=== PATIENT | female | born 1995 | race Caucasian/White ===

== ENCOUNTER 2018-06-26 13:31 | Outpatient (REF) | payer MEDICAID, SELFPAY ==
[2018-06-26 15:34] LABS: Tricyclic Antidepressants Negative (Negative)
[2018-06-26 15:36] LABS: *AMPHETAMINES SCREEN URINE Negative (Negative); *BARBITURATES SCREEN URINE Negative (Negative); *BENZODIAZEPINES SCREEN URINE Negative (Negative); Cannabinoids THC Negative (Negative); Cocaine Screen,Urine Negative (Negative); METHADONE URINE SCREEN Negative (Negative); OPIATES URINE SCREEN Negative (Negative)
[2018-06-28 13:47] LABS: Chlamydia Result Negative; GC Result Negative
[2018-07-01 19:06] LABS: Buprenorphine Negative; Norbuprenorphine Negative
== END 2018-06-26 13:51 ==
LOC: LBN 13:31
PROVIDERS: PCP Family Medicine; Visit Provider Advanced Practice Midwife
DX: Z34.91 Encounter for supervision of normal pregnancy, unspecified, first trimester (principal); N76.0 Acute vaginitis; Z11.3 Encounter for screening for infections with a predominantly sexual mode of transmission
CPT/HCPCS: 80307; 87077; 87491; 87591; 87086; 87186; 87480; 87510; 87660

== ENCOUNTER 2018-07-03 08:04 | Outpatient (CLI) | payer MEDICAID, SELFPAY ==
[2018-07-03 08:40] LABS: Abs Immature Grans 0.06 k/cumm (0.0-0.09); Absolute Basophil Count 0.02 k/cumm (0.0-0.2); Absolute Eosinophil Count 0.07 k/cumm (0.0-0.7); Absolute Lymphocyte Count 2.03 k/cumm (1.2-3.4); Absolute Monocyte Count 0.63 k/cumm (0.11-0.7); Absolute Neutrophil Count 7.02 k/cumm (1.2-6.7); Basophils % 0.2; Eosinophils % 0.7; HCT 34.1 % (36.0-46.0); HGB 12.3 g/dL (12.0-15.5); Immature Grans % 0.6; Lymphocytes % 20.7; Mean Corp. HGB Concentration 36.1 g/dL (32.0-36.0); Mean Corpuscular Hemoglobin 32.8 pg (27.0-33.0); Mean Corpuscular Volume 90.9 fL (80-95); Mean Platelet Volume 9.8 fL (8.0-11.0); Monocytes % 6.4; Neutrophils % 71.4; Platelet Count 219 x1000/uL (130-400); RBC 3.75 m/cumm (4.00-5.20); RBC Distribution Width 16.1 % (11.7-14.6); White Blood Cell Count 9.83 k/cumm (4.4-10.8)
[2018-07-03 09:25] LABS: Anion Gap 12.6 mmol/L (3-11); BUN 8 mg/dL (7-18); CO2 22.4 mmol/L (21.0-32.0); CREATININE 0.49 mg/dL (0.55-1.02); Chloride 104 mmol/L (98-107); Glucose 85 mg/dL (70-100); Potassium 3.7 mmol/L (3.5-5.1); Sodium 139 mmol/L (136-145); TSH (W/Ref FT4) 2.89 uIU/mL (0.358-3.74)
[2018-07-04 09:26] LABS: Hepatitis B Surface Ag Negative (NEGAT)
[2018-07-04 10:08] LABS: HIV-1/2 Ag & Ab Screen Negative (NEGAT)
[2018-07-04 10:13] LABS: Hepatitis C Ab w Rflx HCV PCR Negative (NEGAT)
[2018-07-04 12:19] LABS: Rubella IgG Ab (UVM) Positive; Varicella IgG Antibody Positive
[2018-07-04 12:36] LABS: Syphilis Serology (RPR) Negative (Negative)
[2018-07-08 15:01] LABS: AFP 20.2 ng/mL; Cigarette smoking status non-smoker; GA used in risk estimate Scan estimate; INHIBIN 119 pg/mL; IVF Pregnancy No; Initial or repeat testing Initial testing; Insulin dependent diabetes No; Maternal Weight 230 lbs; Number of Fetuses 1; Physician Phone Number 802-748-7300; Prev Down(T21)/Trisomy Pregnan No; Prev Pregnancy w/NTD No; RECOMMENDED FOLLOW UP None.; Results Summary Normal risk; hCG, TOTAL 18.5 IU/mL; hCG, TOTAL MoM 0.62 MoM; uE3 0.41 ng/mL; uE3 MoM 0.72 MoM
== END 2018-07-03 08:24 ==
PROVIDERS: Advanced Practice Midwife; PCP Family Medicine; Visit Provider Advanced Practice Midwife
DX: Z34.92 Encounter for supervision of normal pregnancy, unspecified, second trimester (principal); Z87.59 Personal history of other complications of pregnancy, childbirth and the puerperium; Z01.84 Encounter for antibody response examination; Z11.59 Encounter for screening for other viral diseases; Z11.4 Encounter for screening for human immunodeficiency virus [HIV]; Z36.89 Encounter for other specified antenatal screening
CPT/HCPCS: 36415; 80048; 80055; 81511; 86787; 86803; 86850; 86900; 86901; 87340; 87389; 84443; 86592; 86762

== ENCOUNTER 2018-07-26 00:19 | Outpatient (CLI) | payer MEDICAID, SELFPAY ==
--- NOTE | 2018-07-26 14:18 | DI.US_ITS ---
SYMPTOMS/DIAGNOSIS: SUPERVISION NORMAL , Z34.90 OB ULTRASOUND: Many abnormalities cannot be diagnosed. A normal exam does not exclude a congenital anomaly. Radiology No. [id number] LMP: Exam Date: 07/26/18 [facility] wks days on EDC ([facility]) 12/22/18 Confirmed: HISTORY: PREDICTED GESTATIONAL AGE NUMBER 18+5 weeks with a range of 17+5 weeks to 19+5 weeks. 1 Determined by___1STUS___LMP_X__HISTORY PLACENTA PRESENTATION Grade I Cephalic___ Anterior___Posterior_X__ Breech____ Right Left Transverse(head right___ Fundal___Low-lying___Previa___ Transverse(head left___ Varying__X____ BIOMETRY AMNIOTIC FLUID BPD: 44 mm 19+3 weeks Normal HC: 169 mm 19+4 weeks AC: 144 mm 19+5 weeks FL: 29 mm 19+0 weeks AMNIOTIC FLUID INDEX >26 WK CRL: mm weeks Cisterna Magna: 4 mm CI: 81 RUQ: LUQ Cerebellum: 2.0 cm EFW: 290 grams Percentile: 84th RLQ: LLQ Total: cms Composite AGE= 19+3 wks EDC by US: 12/17/18 BIOPHYSICAL PROFILE ANATOMY IDENTIFIED SCORE 0/2 Heart: 4-Chamber_X__Rate:BPM 152 LVOT:____X RVOT:__X Amniotic Fluid(>2cms)____ Stomach:___X____ Kidneys:__X Respirations (>30 secs) Bladder:____X____ Post. Fossa:__X Body Flex/Extension 3-vessel cord:__X Ventricles:___X Cord insertion:_X____ Lips:_X___ Extremity Flex/Extension Spinal morphology:___X Nose:__X__ Total Score= Palate:__X NS=not seen COMMENTS: OB ultrasound was performed utilizing second trimester protocol. biometry is consistent with gestational age of 19 weeks 3 days and EDC of 12/17/2018. The placenta is posterior with no evidence of placenta previa. There is a normal quantity of amniotic fluid. anomaly screen is within normal limits as per the attached checklist.
== END 2018-07-26 00:39 ==
PROVIDERS: PCP Family Medicine; Visit Provider Advanced Practice Midwife
DX: Z34.92 Encounter for supervision of normal pregnancy, unspecified, second trimester (principal)
CPT/HCPCS: 76805

== ENCOUNTER 2018-08-23 16:04 | Outpatient (REF) | payer MEDICAID, SELFPAY | END 2018-08-23 16:24 | LOC: LBN 16:04 | PROVIDERS: PCP Family Medicine; Visit Provider Advanced Practice Midwife | DX: Z34.92 Encounter for supervision of normal pregnancy, unspecified, second trimester (principal) | CPT/HCPCS: 87077; 87086; 87186 ==

== ENCOUNTER 2018-09-20 10:13 | Outpatient (REF) | payer MEDICAID, SELFPAY | END 2018-09-20 10:33 | LOC: LBN 10:13 | PROVIDERS: PCP Family Medicine; Visit Provider Advanced Practice Midwife | DX: N39.0 Urinary tract infection, site not specified (principal); B96.20 Unspecified Escherichia coli [E. coli] as the cause of diseases classified elsewhere | CPT/HCPCS: 87086 ==

== ENCOUNTER 2018-10-04 07:53 | Outpatient (CLI) | payer MEDICAID, SELFPAY ==
[2018-10-04 08:42] LABS: HCT 32.1 % (36.0-46.0); Mean Corp. HGB Concentration 34.3 g/dL (32.0-36.0); Mean Corpuscular Hemoglobin 32.1 pg (27.0-33.0); Mean Corpuscular Volume 93.6 fL (80-95); Mean Platelet Volume 10.1 fL (8.0-11.0); Platelet Count 253 x1000/uL (130-400); RBC 3.43 m/cumm (4.00-5.20); RBC Distribution Width 17.7 % (11.7-14.6); White Blood Cell Count 11.93 k/cumm (4.4-10.8)
[2018-10-04 08:43] LABS: Glucose,1 Hr (Glucola) 167 mg/dL (80-140)
== END 2018-10-04 08:13 ==
PROVIDERS: PCP Family Medicine; Visit Provider Advanced Practice Midwife
DX: Z34.93 Encounter for supervision of normal pregnancy, unspecified, third trimester (principal); Z01.84 Encounter for antibody response examination
CPT/HCPCS: 36415; 82950; 85027; 86850; 90384

== ENCOUNTER 2018-10-11 03:40 | Outpatient (CLI) | payer MEDICAID, SELFPAY | END 2018-10-11 04:00 | PROVIDERS: PCP Family Medicine; Visit Provider Advanced Practice Midwife | DX: R69 Illness, unspecified (principal) | CPT/HCPCS: 36415; 82951 ==

== ENCOUNTER 2018-10-17 02:03 | Outpatient (CLI) | payer MEDICAID, SELFPAY ==
[2018-10-17 09:27] LABS: Glucose 1 Hour 186 mg/dL
[2018-10-17 11:54] LABS: Glucose 3 Hour 84 mg/dL
== END 2018-10-17 02:23 ==
PROVIDERS: PCP Family Medicine; Visit Provider Advanced Practice Midwife
DX: R73.09 Other abnormal glucose (principal); Z34.93 Encounter for supervision of normal pregnancy, unspecified, third trimester
CPT/HCPCS: 36410; 82951

== ENCOUNTER 2018-11-28 10:03 | Outpatient (REF) | payer MEDICAID, SELFPAY ==
[2018-11-28 11:21] LABS: *AMPHETAMINES SCREEN URINE Negative (Negative); *BARBITURATES SCREEN URINE Negative (Negative); *BENZODIAZEPINES SCREEN URINE Negative (Negative); Cannabinoids THC Negative (Negative); Cocaine Screen,Urine Negative (Negative); METHADONE URINE SCREEN Negative (Negative); OPIATES URINE SCREEN Negative (Negative)
[2018-11-28 11:22] LABS: Tricyclic Antidepressants Negative (Negative)
[2018-12-02 02:19] LABS: Buprenorphine Negative; Norbuprenorphine Negative
== END 2018-11-28 10:23 ==
LOC: LBN 10:03
PROVIDERS: PCP Family Medicine; Visit Provider Advanced Practice Midwife
DX: Z34.93 Encounter for supervision of normal pregnancy, unspecified, third trimester (principal)
CPT/HCPCS: 80307; 87081

== ENCOUNTER 2018-12-29 01:21 | Inpatient (IN) | payer MEDICAID, SELFPAY ==
[2018-12-29 03:49] LABS: HCT 33.5 % (36.0-46.0); HGB 11.2 g/dL (12.0-15.5); Mean Corp. HGB Concentration 33.4 g/dL (32.0-36.0); Mean Corpuscular Hemoglobin 29.6 pg (27.0-33.0); Mean Corpuscular Volume 88.4 fL (80-95); Mean Platelet Volume 10.7 fL (8.0-11.0); Platelet Count 249 x1000/uL (130-400); RBC 3.79 m/cumm (4.00-5.20); White Blood Cell Count 16.97 k/cumm (4.4-10.8)
[2018-12-29] MEDS: Normal Saline Flush 10 ML SYR IVP (14:00)
[2018-12-30 08:05] LABS: HCT 31.3 % (36.0-46.0); HGB 10.2 g/dL (12.0-15.5); Mean Corp. HGB Concentration 32.6 g/dL (32.0-36.0); Mean Corpuscular Hemoglobin 29.3 pg (27.0-33.0); Mean Corpuscular Volume 89.9 fL (80-95); Mean Platelet Volume 10.7 fL (8.0-11.0); Platelet Count 218 x1000/uL (130-400); RBC 3.48 m/cumm (4.00-5.20); RBC Distribution Width 18.6 % (11.7-14.6); White Blood Cell Count 16.65 k/cumm (4.4-10.8)
== END 2018-12-30 13:10 | disposition home or self-care (01) | DRG 807 ==
PROVIDERS: Admitting Provider Advanced Practice Midwife; PCP Family Medicine; Visit Provider Advanced Practice Midwife
DX: O48.0 Post-term pregnancy (principal); Z37.0 Single live birth; Z3A.41 41 weeks gestation of pregnancy; O69.3XX0 Labor and delivery complicated by short cord, not applicable or unspecified; Z79.82 Long term (current) use of aspirin; Z29.13 Encounter for prophylactic Rho(D) immune globulin; Z67.11 Type A blood, Rh negative
CPT/HCPCS: 36415; 85027; 85461; 86850; 86900; 86901; 90384; J2790; J3490

== ENCOUNTER 2019-02-12 15:03 | Outpatient (REF) | payer MEDICAID, SELFPAY ==
--- NOTE | 2019-02-12 12:05 | PAPFT_PTH ---
PATIENT: Tasha White LOC: N U#:[id number] AGE/SX: 23/F ROOM: RE02/12/[address]: Lovely Gonzalez RN : 1995 BED: DIS: 02/12/2019 SPEC #: [id number] RECD: 02/12/19 16:43 STATUS: DIANA REQ #: [id number] LUISA: 02/12/19 12:[address]: Lovely Gonzalez DEPT: [facility] Cytology RECD BY: Naz Casey ENTERED: 02/12/19 16:43 SP TYPE: PAPFT OTHR DR: Milly Marquez MD Tissues: 1 - CX/ENDOCX FOR PAP SMEARS Procedures: PAP THIN PREP/UVM Screening Comments: [id number]
== END 2019-02-12 15:23 ==
LOC: LBN 15:03
PROVIDERS: PCP Family Medicine; Visit Provider Advanced Practice Midwife
DX: Z12.4 Encounter for screening for malignant neoplasm of cervix (principal)
CPT/HCPCS: 88142

== ENCOUNTER 2020-03-09 17:32 | Outpatient (REF) | payer MEDICAID, SELFPAY | END 2020-03-09 17:52 | LOC: LBN 17:32 | PROVIDERS: PCP Family Medicine; Visit Provider Advanced Practice Midwife | DX: R30.0 Dysuria (principal) | CPT/HCPCS: 87077; 87086; 87186 ==

== ENCOUNTER 2021-02-01 11:43 | Outpatient (REF) | payer MEDICAID, SELFPAY ==
[2021-02-02 20:16] LABS: COVID-19 RT-PCR UVMMC Result Negative (Negative)
== END 2021-02-01 11:44 | disposition home or self-care (01) ==
LOC: LBN 11:43
PROVIDERS: Visit Provider Student in an Organized Health Care Education/Training Program
DX: Z20.822 Contact with and (suspected) exposure to COVID-19 (principal)
CPT/HCPCS: U0003

== ENCOUNTER 2021-03-02 10:14 | Outpatient (REF) | payer MEDICAID, SELFPAY ==
[2021-03-03 20:47] LABS: COVID-19 RT-PCR UVMMC Result Negative (Negative)
== END 2021-03-02 10:15 | disposition home or self-care (01) ==
LOC: LBN 10:14
PROVIDERS: Visit Provider Nurse Practitioner Family
DX: Z20.822 Contact with and (suspected) exposure to COVID-19 (principal)
CPT/HCPCS: U0003

== ENCOUNTER 2022-04-18 11:56 | Outpatient (REF) | payer MEDICAID, SELFPAY ==
--- NOTE | 2022-04-18 11:30 | PAPFT_PTH ---
PATIENT: Tasha White LOC: [facility] U#:[id number] AGE/SX: 26/F ROOM: RE04/18/[address]: Stefania Hopkins NP : 1995 BED: DIS: 04/18/2022 SPEC #: [id number] RECD: 04/18/22 13:08 STATUS: DIANA REQ #: [id number] LUISA: 04/18/22 11:[address]: Kellie MONDRAGON,Stefania DEPT: [facility] Cytology RECD BY: Naz Casey ENTERED: 04/18/22 13:08 SP TYPE: PAPFT OTHR DR: Hiral Lynn, DURAN Tissues: 1 - CX/ENDOCX FOR PAP SMEARS Procedures: PAP THIN PREP/UVM Screening HPV DNA PROBE Comments:
== END 2022-04-18 11:57 | disposition home or self-care (01) ==
LOC: LBN 11:56
PROVIDERS: PCP Nurse Practitioner Family; Visit Provider Nurse Practitioner Women's Health
DX: Z12.4 Encounter for screening for malignant neoplasm of cervix (principal); Z11.51 Encounter for screening for human papillomavirus (HPV)
CPT/HCPCS: 88142; 87624

== ENCOUNTER 2022-05-09 03:39 | Outpatient (CLI) | payer MEDICAID, SELFPAY ==
[2022-05-09 12:58] LABS: Hemoglobin A1C < 4.5 % (<5.7)
[2022-05-09 13:01] LABS: Anion Gap 11.3 mmol/L (3-11); BUN 13 mg/dL (7-18); CO2 24.7 mmol/L (21.0-32.0); CREATININE 0.8 mg/dL (0.55-1.02); Calcium 9.1 mg/dL (8.5-10.1); Calculated LDL 91 mg/dL (<100); Chloride 103 mmol/L (98-107); Cholesterol 161 mg/dL (<200); Estimated GFR 102.86 (mL/min/1.73m2); Glucose 87 mg/dL (74-106); HDL Cholesterol 56 mg/dL (40-60); Potassium 3.9 mmol/L (3.5-5.1); Sodium 139 mmol/L (136-145); TSH (W/Ref FT4) 2.53 uIU/mL (0.36-3.74); Triglyceride 72 mg/dL (<150)
== END 2022-05-09 03:40 | disposition home or self-care (01) ==
LOC: LOS 03:39
PROVIDERS: PCP Nurse Practitioner Family; Visit Provider Nurse Practitioner Family
DX: E66.01 Morbid (severe) obesity due to excess calories (principal); Z00.00 Encounter for general adult medical examination without abnormal findings; Z68.42 Body mass index [BMI] 45.0-49.9, adult
CPT/HCPCS: 36415; 80048; 80061; 83036; 84443

== ENCOUNTER 2023-04-24 16:49 | Outpatient (REF) | payer OTHER, MEDICAID, SELFPAY ==
[2023-04-24 17:50] LABS: *AMPHETAMINES SCREEN URINE Negative (Negative); *BARBITURATES SCREEN URINE Negative (Negative); *BENZODIAZEPINES SCREEN URINE Negative (Negative); Cannabinoids THC Negative (Negative); Cocaine Screen,Urine Negative (Negative); METHADONE URINE SCREEN Negative (Negative); OPIATES URINE SCREEN Negative (Negative)
[2023-04-24 17:51] LABS: Tricyclic Antidepressants Negative (Negative)
[2023-04-26 15:06] LABS: Chlamydia Result Negative (Negative); GC Result Negative (Negative)
[2023-05-01 08:20] LABS: Buprenorphine Negative ng/mL (Cutoff: 5.0); Norbuprenorphine Negative ng/mL (Cutoff: 2.5)
== END 2023-04-24 16:50 | disposition home or self-care (01) ==
LOC: LBN 16:49
PROVIDERS: PCP Nurse Practitioner Family; Visit Provider Advanced Practice Midwife
DX: Z34.91 Encounter for supervision of normal pregnancy, unspecified, first trimester
CPT/HCPCS: 80307; 80348; 87077; 87491; 87591; 87086; 87186

== ENCOUNTER 2023-05-10 06:16 | Emergency (ER) | payer OTHER, MEDICAID, SELFPAY ==
[2023-05-10 06:19] VITALS: BP 143/89; PULSE 114; RESP 24; TEMP 36.5; O2SAT 99
--- NOTE | 2023-05-10 06:55 | ED.GENADUL_ITS ---
Discharge Plan Disposition Patient Disposition: Home Discharge Details Clinical Impression: Hand laceration Primary Care Provider: Hiral Lynn ED Provider: Homar Hopkins Home Meds and New Rx's Prescriptions: No Action Classic 28 mg iron- 800 mcg tablet 1 tab PO DAILY Qty: 90 3RF Rx Instructions: may substitute aspirin 81 mg tablet,delayed release (DR/EC) 81 mg PO DAILY Qty: 60 5RF Rx Instructions: 1 tab daily alternating with two tabs every other day Discharge Instructions Instructions: Laceration (ED) Additional Instructions: You were seen in the emergency department after getting a cut on your right hand just below your thumb. We repaired this with 4 stitches after cleaning out the area. Get the stitches removed in 7 days if they do not fall out on their own. Return here for any redness or warmth to the area of the laceration repair. Return to the emergency department if you have any loss of function to your finger or hand. Otherwise follow-up with your primary care doctor. Referrals: Hiral Lynn NP [Primary Care Provider] - Return if symptoms worsen Medical Decision Making 27-year-old female presents with a laceration on the right hand. Simple laceration with no neurovascular or tendinous injury. Washed and irrigated at bedside. Repaired with 4 sutures. No complications. Up-to-date on tetanus. Will discharge with return precautions. Medical Records Medical records reviewed: Yes I reviewed the patient's medical records. HPI General Mode of arrival: ambulatory . Date/Time Provider Initiated Documentation: 05/10/23 06:29 . Limitations to Documentation: no limitations . Information obtained by: patient . HPI Narrative: 27-year-old female presents with a laceration to the right hand/thumb. Was washing decisions and did not notice piece of broken glass. Got a small 2 cm laceration to the right hand right at the base of the right thumb. Glass was clean. Had a tetanus shot within the last 5 years. Denies any other complaints. Related Data Home Medications Medication Instructions Recorded Confirmed vits no.126-ferrous fum 1 tab PO DAILY #90 tabs 03/06/23 05/10/23 28 mg iron-folic acid 800 mcg tablet (Classic ) aspirin 81 mg tablet,delayed 81 mg PO DAILY #60 tabs 04/24/23 05/10/23 release Previous Rx's Medication Instructions Recorded vits no.126-ferrous fum 1 tab PO DAILY #90 tabs 03/06/23 28 mg iron-folic acid 800 mcg tablet (Classic ) aspirin 81 mg tablet,delayed 81 mg PO DAILY #60 tabs 04/24/23 release Allergies Allergy/AdvReac Type Severity Reaction Status Date / Time No Known Allergies Allergy Verified 05/10/23 06:19 General Stated Complaint: Laceration XI: 4 Review of Systems Constitutional Constitutional: Denies chills, Denies fever(s) and Denies headache(s) Eyes Eyes: Denies change in vision ENT Ears, Nose, Mouth, and Throat: Denies headache(s) and Denies odynophagia Cardiovascular Cardiovascular: Denies chest pain and Denies dyspnea Respiratory Respiratory: Denies dyspnea Gastrointestinal Gastrointestinal: Denies abdominal pain, Denies diarrhea, Denies nausea, Denies odynophagia and Denies vomiting Genitourinary Genitourinary: Denies dysuria Musculoskeletal Musculoskeletal: Denies myalgias Integumentary/Breasts Skin/Breast: Denies changing lesions Comments: Laceration Neurologic Neurologic: Denies behavioral changes and Denies headache(s) Psychiatric Psychiatric: Denies behavioral changes Endocrine Endocrine: Denies heat intolerance Hematologic/Lymphatic Hematologic/Lymphatic: Denies lymphadenopathy PFSH All Active Problems Hand laceration (Acute) History of pre-eclampsia in prior , currently (Acute) Rh negative state in antepartum period (Acute 12/15/14) (Acute) Obesity, Class III, BMI 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 Sister No problems noted. Brother No problems noted. Maternal Grandfather , 75 Alcohol use disorder Paternal Grandfather No problems noted. Maternal Grandmother No problems noted. Paternal Grandmother No problems noted. Son No problems noted. Daughter No problems noted. Social History Smoking/Tobacco Use Status: Never Second Hand Exposure: Yes Smoking risk assessment performed?: Yes Alcohol Intake: former Drug use: Never Substance use type: does not use Caregiver/Support person: No Household members: children Housing: house Number of Children: 1 Communication Needs: None Do you need help understanding health information?: Never current occupation: [employer] Pets and animals: Yes Pets and animals: cat(s) and dog(s) Sexually active: Yes Do you think of yourself as: straight/heterosexual Current gender identity: female What is your relationship status?: never How often do you talk on the phone with friends or family?: three or more times per week How often do you get together with friends or relatives?: three or more times per week How often do you attend orthodoxy or anglican services?: decline to answer Do you belong to any clubs or organized social groups?: no Panel score (0-1 are the most socially isolated patients): 1 What type of physical activity do you participate in: walking Duration: < 15 minutes/day Frequency: 1-2 times per week Maryjo/Zoroastrian: No preference Special maryjo needs: No Seatbelt use: always Helmet use: Yes Drive intox or ride w/intox van driver: No Do you feel safe at home: Yes Do you feel safe in your relationship?: Yes Female Reproductive History Menstrual Age of Menarche: 9 Duration of menses: 3-5 days control method: condoms History History 3 Para 2 Hx # Term Pregnancies 2 Multiple births 0 Hx # Pregnancies 0 Ectopic pregnancies 0 AB induced 0 Hx Number of Living Children 2 AB spontaneous 0 Past Pregnancies Del. Date GA/Weeks # Preg Succ Route Wgt Sex Labor Lgth Anesth esia Location [facility] 08/13/15 39 No vaginal 3345.244 g Female 12 hrs LR H in [place] other 12/29/18 41 No vaginal 3657.088 g Male Anea Lelong Delivery Date: 08/13/15 Last Updated by: Dipika Roman IOL with misoprostol for preeclampsia, Sondra. Delivery Date: 12/29/18 Last Updated by: Briana Gibson Spont labor, nml . Edi Exam Const General: cooperative Nutritional Appearance: average body habitus Orientation: alert, awake and oriented x3 HENMT Head: normal to inspection Ears: external ears normal Mouth: moist mucous membranes Eyes Pupils: PERRL EOM: EOM intact bilaterally and No nystagmus Neck Neck: full ROM and no tracheal deviation Chest Chest: normal inspection of the chest Resp Auscultation: clear to auscultation bilaterally Cardio Rate: regular rate Rhythm: regular rhythm GI Inspection: normal to inspection Palpation: soft, no guarding, not rigid and nontender Back/Spine/Pelvis Back: No no CVA tenderness Thoracic/Lumbar Spine: thoracic and lumbar spine normal to inspection Skin General skin exam: no rashes or lesions noted Neuro General: patient alert, patient awake and patient oriented x3 Cranial Nerves: CN's II-XI intact bilaterally, PERRL and no nystagmus Cognition: normal cognition Motor: muscle tone normal throughout and strength 5/5 throughout Sensory Exam: no sensory deficits noted Extrem Other: 2 cm laceration on the right hand at the resection with the right thumb. Sensation motor and circulation intact in the distal thumb. Small amount of bleeding easily controlled. Goes into the subcutaneous tissue but this or neurovascular injury and cannot probe to bone. Course Vital Signs Vital signs: Vital Signs Temperature 36.5 C 05/10/23 06:19 Pulse 114 H 05/10/23 06:19 Respiratory Rate 24 05/10/23 06:19 Blood Pressure 143/89 H 05/10/23 06:19 Pulse Oximetry 99 05/10/23 06:19 Temperature 36.5 C 05/10/23 06:19 Temperature Source Temporal Artery Scan 05/10/23 06:19 Pulse 114 H 05/10/23 06:19 Respiratory Rate 24 05/10/23 06:19 Respiratory Effort Normal, Non-Labored 05/10/23 06:22 Blood Pressure 143/89 H 05/10/23 06:19 Blood Pressure Position Sitting 05/10/23 06:19 Pulse Oximetry 99 05/10/23 06:19 Oxygen Delivery Method Room Air 05/10/23 06:19 Oxygen Flow Rate 0 05/10/23 06:19 Pain Level 5 05/10/23 06:22 Procedures Laceration right hand: Site: other (hand) Side (If applicable): right Size (cm): 2 Description: linear Depth: simple, single layer Local Anesthetic: Lidocaine 2% Amount of anesthesia used (mL): 8 Pre-repair: wound explored, irrigated extensively and deep structures intact Skin layer closed with: vicryl Size (cm): 4-0 Number of sutures: 4 Technique: simple, interrupted
== END 2023-05-10 07:02 | disposition home or self-care (01) ==
PROVIDERS: Emergency Provider Student in an Organized Health Care Education/Training Program; PCP Nurse Practitioner Family
DX: M79.641 Pain in right hand (principal); S61.411A Laceration without foreign body of right hand, initial encounter; W25.XXXA Contact with sharp glass, initial encounter
CPT/HCPCS: 12001

== ENCOUNTER 2023-05-21 15:29 | Outpatient (REF) | payer OTHER, MEDICAID, SELFPAY ==
[2023-05-21 17:40] LABS: PROTEIN 18.4 mg/dL; Prot/Crea Ur Ratio 0.14
== END 2023-05-21 15:30 | disposition home or self-care (01) ==
LOC: LBN 15:29
PROVIDERS: PCP Nurse Practitioner Family; Visit Provider Advanced Practice Midwife
DX: O09.292 Supervision of pregnancy with other poor reproductive or obstetric history, second trimester (principal); O13.2 Gestational [pregnancy-induced] hypertension without significant proteinuria, second trimester; Z3A.15 15 weeks gestation of pregnancy
CPT/HCPCS: 82565; 84156

== ENCOUNTER 2023-06-21 04:51 | Outpatient (CLI) | payer OTHER, MEDICAID, SELFPAY ==
[2023-06-21 08:15] LABS: ALT 101 U/L (14-59); AST 32 U/L (15-37); Alkaline Phosphatase 66 U/L (46-116); Anion Gap 11.1 mmol/L (3-11); BUN 6 mg/dL (7-18); Bilirubin, Total 0.4 mg/dL (0.2-1.0); CO2 21.9 mmol/L (21.0-32.0); CREATININE 0.8 mg/dL (0.55-1.02); Calcium 8.7 mg/dL (8.5-10.1); Chloride 104 mmol/L (98-107); Estimated GFR 101.59 (mL/min/1.73m2); Glucose 158 mg/dL (74-106); Potassium 3.2 mmol/L (3.5-5.1); Sodium 137 mmol/L (136-145); TSH (W/Ref FT4) 1.74 uIU/mL (0.36-3.74); Total Protein 6.8 g/dL (6.4-8.2)
[2023-06-21 10:52] LABS: Lab Add On Test DONE
[2023-06-21 11:02] LABS: Amylase 51 U/L (25-115); Lipase 36 U/L (16-77)
[2023-06-21 19:31] LABS: Hepatitis A Antibody IgM Negative (Negative); Hepatitis B Core Antibody Negative (Negative); Hepatitis B surface Ag Negative (Negative); Hepatitis C Ab w Rflx HCV PCR Negative (Negative)
[2023-06-25 14:01] LABS: AFP 73.2 ng/mL; Calculated age at EDD 30 years; Cigarette smoking status non-Smoker; GA used in risk estimate Scan estimate; INHIBIN 234 pg/mL; IVF Pregnancy No; Initial or repeat testing Initial testing; Insulin dependent diabetes No; Maternal Weight 256 lbs; Number of Fetuses 1; Physician Phone Number 802-748-7300; Prev Down(T21)/Trisomy Pregnan No; Prev Pregnancy w/NTD No; RECOMMENDED FOLLOW UP None.; Results Summary Normal risk; hCG, TOTAL 21.5 IU/mL; hCG, TOTAL MoM 1.46 MoM; uE3 1.45 ng/mL
== END 2023-06-21 04:52 | disposition home or self-care (01) ==
LOC: LBO 04:51
PROVIDERS: Advanced Practice Midwife; PCP Nurse Practitioner Family; Visit Provider Advanced Practice Midwife
DX: Z34.91 Encounter for supervision of normal pregnancy, unspecified, first trimester; O09.291 Supervision of pregnancy with other poor reproductive or obstetric history, first trimester; R79.89 Other specified abnormal findings of blood chemistry
CPT/HCPCS: 36415; 80053; 81511; 83690; 86704; 86709; 86803; 87340; 82150; 84443

== ENCOUNTER 2023-08-01 03:23 | Outpatient (CLI) | payer OTHER, MEDICAID, SELFPAY ==
[2023-08-01 08:30] LABS: ALT 54 U/L (14-59); AST 25 U/L (15-37); Albumin 3.1 g/dL (3.4-5.0); Alkaline Phosphatase 74 U/L (46-116); Anion Gap 14.6 mmol/L (3-11); BUN 7 mg/dL (7-18); Bilirubin, Total 0.4 mg/dL (0.2-1.0); CO2 21.4 mmol/L (21.0-32.0); CREATININE 0.6 mg/dL (0.55-1.02); Calcium 8.6 mg/dL (8.5-10.1); Chloride 105 mmol/L (98-107); Estimated GFR 123.76 (mL/min/1.73m2); Glucose 91 mg/dL (74-106); Potassium 3.4 mmol/L (3.5-5.1); Sodium 141 mmol/L (136-145); Total Protein 6.6 g/dL (6.4-8.2)
== END 2023-08-01 03:24 | disposition home or self-care (01) ==
LOC: LBO 03:23
PROVIDERS: Advanced Practice Midwife; PCP Nurse Practitioner Family; Visit Provider Advanced Practice Midwife
DX: R79.89 Other specified abnormal findings of blood chemistry (principal)
CPT/HCPCS: 36415; 80053

== ENCOUNTER 2023-08-01 15:24 | Outpatient (REF) | payer OTHER, MEDICAID, SELFPAY ==
[2023-08-01 16:10] LABS: PROTEIN 19.5 mg/dL (0.0-11.9)
[2023-08-01 16:11] LABS: Total Volume 2600 ml
== END 2023-08-01 15:25 | disposition home or self-care (01) ==
LOC: LBN 15:24
PROVIDERS: PCP Nurse Practitioner Family; Visit Provider Advanced Practice Midwife
DX: O10.912 Unspecified pre-existing hypertension complicating pregnancy, second trimester (principal); O09.292 Supervision of pregnancy with other poor reproductive or obstetric history, second trimester; Z3A.25 25 weeks gestation of pregnancy
CPT/HCPCS: 81050; 84155

== ENCOUNTER 2023-08-02 15:58 | Outpatient (REF) | payer OTHER, MEDICAID, SELFPAY | END 2023-08-02 15:59 | disposition home or self-care (01) | LOC: LBN 15:58 | PROVIDERS: PCP Nurse Practitioner Family; Visit Provider Obstetrics & Gynecology | DX: Z34.93 Encounter for supervision of normal pregnancy, unspecified, third trimester (principal) | CPT/HCPCS: 87086 ==

== ENCOUNTER 2023-08-17 02:36 | Outpatient (CLI) | payer OTHER, MEDICAID, SELFPAY ==
[2023-08-17 07:33] LABS: Abs Immature Grans 0.17 10^3/uL (0.0-0.06); Absolute Basophil Count 0.05 10^3/uL (0.0-0.2); Absolute Lymphocyte Count 2.25 10^3/uL (1.2-3.4); Absolute Monocyte Count 0.65 10^3/uL (0.1-0.8); Basophils % 0.4; HCT 31.7 % (36.0-46.0); HGB 11.1 g/dL (11.2-15.7); Immature Grans % 1.4; MCH 32.6 pg (27.0-33.0); MCV 93 fL (80-95); MPV 9.8 fL (8.0-11.0); Monocytes % 5.2; Platelet Count 242 10^3/uL (130-400); RDW 17.5 % (11.7-14.6)
[2023-08-17 07:42] LABS: Absolute Eosinophil Count 0.13 10^3/uL (0.0-0.7); Absolute Neutrophil Count 9.25 10^3/uL (1.2-6.7)
[2023-08-17 07:52] LABS: Glucose,1 Hr (Glucola) 164 mg/dL (80-140)
== END 2023-08-17 02:37 | disposition home or self-care (01) ==
LOC: LBO 02:37
PROVIDERS: PCP Nurse Practitioner Family; Visit Provider Obstetrics & Gynecology
DX: O10.913 Unspecified pre-existing hypertension complicating pregnancy, third trimester; E66.01 Morbid (severe) obesity due to excess calories; Z34.83 Encounter for supervision of other normal pregnancy, third trimester
CPT/HCPCS: 36415; 82950; 86850; 86900; 86901; 90384; 85025

== ENCOUNTER 2023-08-27 19:02 | Outpatient (REF) | payer OTHER, MEDICAID, SELFPAY | END 2023-08-27 19:03 | disposition home or self-care (01) | LOC: LBN 19:02 | PROVIDERS: PCP Nurse Practitioner Family; Referring Provider Obstetrics & Gynecology Gynecology; Visit Provider Obstetrics & Gynecology Gynecology | DX: N39.0 Urinary tract infection, site not specified (principal) | CPT/HCPCS: 87077; 87086; 87186 ==

== ENCOUNTER 2023-10-01 07:28 | Outpatient (CLI) | payer OTHER, MEDICAID, SELFPAY ==
[2023-10-01 12:00] VITALS: BP 120/64; PULSE 100; TEMP 36.8
--- NOTE | 2023-10-03 09:06 | W.OBNST ---
Date of service: 10/01/23 Time of Service: 12:00 NST Evaluation Reason for NST Reasons for Nonstress Test: OTHER, SEE COMMENT Reason for NST Other: Preeclampsia with first pregnany Gestational Age Gestational Age in Weeks and Days: 34 Weeks and 3Days Test and Monitor Explained Test/Monitor Explained: Test Explained Vital Signs Blood Pressure: 120/64 Pulse: 100 Temperature: 98.2 F Urine Results Urine Protein: Negative Urine Ketones: Negative Urine Glucose: Negative Urine Blood: Negative NST Information Date on Monitor: 10/01/23 Time on Monitor: 12:00 Date off Monitor: 10/01/23 Time off Monitor: 12:29 Total Time on Monitor: 29 NST Interventions: None NST Evaluation Patient States Movement: Present Variability: Moderate 6-25 bpm Accelerations: 15x15 Decelerations: None NST Results: Reactive Note Ultrasound Done: N/A. NST Note NST Reviewed and Verified by: Marcia Queen
[2023-10-03 09:07] VITALS: BP 120/64; PULSE 100; TEMP 36.8
== END 2023-10-01 12:39 | disposition home or self-care (01) ==
LOC: BCD 07:29 → OBS 12:09
PROVIDERS: PCP Nurse Practitioner Family; Visit Provider Obstetrics & Gynecology
DX: O09.293 Supervision of pregnancy with other poor reproductive or obstetric history, third trimester (principal); Z3A.34 34 weeks gestation of pregnancy
CPT/HCPCS: 59025

== ENCOUNTER 2023-10-04 07:24 | Outpatient (CLI) | payer OTHER, MEDICAID, SELFPAY ==
[2023-10-04 12:14] VITALS: BP 113/56; PULSE 98; TEMP 36.9
[2023-10-04 12:19] VITALS: BP 113/56; PULSE 98
--- NOTE | 2023-10-04 20:37 | W.OBNST ---
Date of service: 10/04/23 Time of Service: 20:38 NST Evaluation Reason for NST Reasons for Nonstress Test: CHRONIC HYPERTENSION Gestational Age Gestational Age in Weeks and Days: 34 Weeks and 6Days Test and Monitor Explained Test/Monitor Explained: Test Explained, Monitor Explained and Patient Verbalized Understanding Vital Signs Blood Pressure: 113/56 Pulse: 98 Temperature: 98.4 F Urine Results Urine Protein: Negative Urine Ketones: Negative Urine Glucose: Negative Urine Blood: Negative NST Information Date on Monitor: 10/04/23 Time on Monitor: 12:13 Date off Monitor: 10/04/23 Time off Monitor: 12:27 Total Time on Monitor: 14 NST Interventions: PO Hydration Contraction Frequency: 0 NST Evaluation Patient States Movement: Present FHR Baseline: 130 Variability: Moderate 6-25 bpm Accelerations: 15x15 Decelerations: None NST Results: Reactive Note Ultrasound Done: N/A. NST Note Note: Patient reports satisfactory blood pressures at home. No complaints of headache or right upper quadrant pain. NST reactive. Patient will continue with twice weekly NSTs. Plan GBS RV Cx at 36 weeks. NST Reviewed and Verified by: Siomara Aguiar
[2023-10-04 20:39] VITALS: BP 113/56; PULSE 98; TEMP 36.9
== END 2023-10-04 12:33 ==
LOC: BCD 07:24 → OBS 12:10
PROVIDERS: PCP Nurse Practitioner Family; Visit Provider Obstetrics & Gynecology Gynecology
DX: O16.3 Unspecified maternal hypertension, third trimester (principal); Z3A.34 34 weeks gestation of pregnancy
CPT/HCPCS: 59025

== ENCOUNTER 2023-10-08 07:13 | Outpatient (CLI) | payer OTHER, MEDICAID, SELFPAY ==
[2023-10-08 11:54] VITALS: BP 107/51; PULSE 111; TEMP 36.7
[2023-10-08 12:11] VITALS: BP 107/51; PULSE 111
[2023-10-08 13:15] LABS: Abs Immature Grans 0.13 10^3/uL (0.0-0.06); Absolute Basophil Count 0.05 10^3/uL (0.0-0.2); Absolute Lymphocyte Count 2.16 10^3/uL (1.2-3.4); Basophils % 0.4 %; HGB 10.7 g/dL (11.2-15.7); Lymphocytes % 17.1 %; MCH 30.6 pg (27.0-33.0); MCHC 33.4 % (32.0-36.0); MCV 91 fL (80-95); Monocytes % 7.1 %; Neutrophils % 73.4 %; Nucleated RBC 0.2 % (0.0-0.3); Platelet Count 254 10^3/uL (130-400); RDW 17.3 % (11.7-14.6); WBC 12.62 10^3/uL (4.4-10.8)
[2023-10-08 13:16] LABS: Absolute Eosinophil Count 0.13 10^3/uL (0.0-0.7); Absolute Neutrophil Count 9.26 10^3/uL (1.2-6.7)
[2023-10-08 13:32] LABS: COMMENT (LAB VIEW ONLY) 124.02 mg/dL; PROTEIN 31.1 mg/dL; Prot/Crea Ur Ratio 0.25
[2023-10-08 13:50] LABS: ALT 38 U/L (14-59); AST 20 U/L (15-37); Albumin 3.1 g/dL (3.4-5.0); Alkaline Phosphatase 111 U/L (46-116); Anion Gap 12.8 mmol/L (3-11); BUN 7 mg/dL (7-18); Bilirubin, Total 0.6 mg/dL (0.2-1.0); CO2 22.2 mmol/L (21.0-32.0); CREATININE 0.5 mg/dL (0.55-1.02); Calcium 8.9 mg/dL (8.5-10.1); Chloride 105 mmol/L (98-107); Estimated GFR 129.32 (mL/min/1.73m2); Glucose 92 mg/dL (74-106); Potassium 3.9 mmol/L (3.5-5.1); Sodium 140 mmol/L (136-145); Total Protein 6.4 g/dL (6.4-8.2); Uric Acid 4.1 mg/dL (2.6-6.0)
--- NOTE | 2023-10-08 16:58 | W.OBNST ---
Date of service: 10/08/23 Time of Service: 12:00 NST Evaluation Reason for NST Reasons for Nonstress Test: CHRONIC HYPERTENSION Gestational Age Gestational Age in Weeks and Days: 35 Weeks and 3Days Test and Monitor Explained Test/Monitor Explained: Test Explained, Monitor Explained and Patient Verbalized Understanding Vital Signs Blood Pressure: 107/51 Pulse: 111 Temperature: 98.0 F Urine Results Urine Protein: Positive Urine Ketones: Negative Urine Glucose: Negative Urine Blood: Positive NST Information Date on Monitor: 10/08/23 Time on Monitor: 12:06 Date off Monitor: 10/08/23 Time off Monitor: 12:28 Total Time on Monitor: 22 NST Interventions: None Contraction Frequency: 0 NST Evaluation Patient States Movement: Present FHR Baseline: 130 Variability: Moderate 6-25 bpm Accelerations: 15x15 Decelerations: None NST Results: Reactive Note Ultrasound Done: N/A. NST Note Note: Pt with +blood/protein in her urine but no visible blood when wiping. No cramping/contractions or loss of fluid. No dysuria/negative for nitrites. Feeling good movement. No headache/visual changes/abd pains. PEC labs checked and were all normal. Pt cautioned on s/s of PEC or PTL and reasons to call. She returns in 3 days for repeat NST. NST Reviewed and Verified by: Marcia Queen
[2023-10-08 17:01] VITALS: BP 107/51; PULSE 111; TEMP 36.7
== END 2023-10-08 13:00 ==
LOC: BCD 07:13 → OBS 11:50
PROVIDERS: PCP Nurse Practitioner Family; Visit Provider Obstetrics & Gynecology
DX: O16.3 Unspecified maternal hypertension, third trimester (principal); Z3A.35 35 weeks gestation of pregnancy
CPT/HCPCS: 59025; 36415; 80053; 82565; 84156; 84550; 85025

== ENCOUNTER 2023-10-11 09:50 | Outpatient (CLI) | payer OTHER, MEDICAID, SELFPAY ==
[2023-10-11 12:19] VITALS: BP 122/70; PULSE 109
--- NOTE | 2023-10-11 12:22 | W.OBNST ---
Date of service: 10/11/23 Time of Service: 14:00 NST Evaluation Reason for NST Reasons for Nonstress Test: CHRONIC HYPERTENSION Gestational Age Gestational Age in Weeks and Days: 35 Weeks and 3Days Test and Monitor Explained Test/Monitor Explained: Test Explained, Monitor Explained and Patient Verbalized Understanding Vital Signs Blood Pressure: 115/59 Pulse: 84 Temperature: 97.6 F NST Information Date on Monitor: 10/11/23 Time on Monitor: 12:45 Date off Monitor: 10/11/23 Time off Monitor: 13:30 Total Time on Monitor: 45 NST Interventions: None Contraction Frequency: occasional NST Evaluation Patient States Movement: Present FHR Baseline: 140 Variability: Moderate 6-25 bpm Accelerations: 15x15 Decelerations: None NST Results: Reactive Note Ultrasound Done: N/A. NST Note Note: Patient reports satisfactory blood pressures at home. No complaints of headache or right upper quadrant pain. NST reactive. Patient will continue with twice weekly NSTs. Plan GBS RV Cx at 36 weeks. NST Reviewed and Verified by: Siomara Aguiar
[2023-10-11 12:23] VITALS: BP 115/59; PULSE 97
[2023-10-11 12:26] VITALS: BP 115/59; PULSE 97; TEMP 36.7
[2023-10-19 12:37] VITALS: BP 115/59; PULSE 84; TEMP 36.4
== END 2023-10-11 13:20 ==
LOC: BCD 09:51 → OBS 11:58
PROVIDERS: PCP Nurse Practitioner Family; Visit Provider Obstetrics & Gynecology Gynecology
DX: O16.3 Unspecified maternal hypertension, third trimester (principal); Z3A.35 35 weeks gestation of pregnancy
CPT/HCPCS: 59025; 87081

== ENCOUNTER → 2023-10-15 02:40 | Outpatient (CLI) | payer OTHER, MEDICAID, SELFPAY ==
--- NOTE | 2023-10-15 07:15 | DI.US_ITS ---
Exam(s) US OB DOUGLAS WEIGHT EXAM: US OB DOUGLAS WEIGHT CLINICAL HISTORY: growth/douglas,obesity,excessive growth,O36.60x0. TECHNIQUE: Transabdominal obstetrical ultrasound performed. COMPARISON: US US OB 2-3 TRIMESTER from 06/19/2023 FINDINGS: Number of fetuses: 1 position: CEPHALIC Placental location: There is a grade 2 placenta which is in the fundus and on the right. No evidence of previa. BIOMETRIC DATA: BPD: 9.46cm, 38weeks 4days HC: 34.23cm, 39weeks 3days AC: 34.74cm, 38weeks 5days FL: 7.44cm, 38weeks EFW: 3,539.99g, 7lb 12.72oz, 95.7% Composite Age: 38weeks 5days LEELA: 10/24/2023 Heart Rate: 154bpm Amniotic fluid index: 11.28cm. The largest pocket measures 3.6 cm. IMPRESSION: 1. Single live intrauterine gestation as above. 2. Estimated weight is 3540gms. This is the 96th percentile. 3. Amniotic fluid index is 11.3 cm. The largest pocket measures 3.6 cm. DATA REPOSITORY:
== END ==
PROVIDERS: PCP Nurse Practitioner Family; Visit Provider Obstetrics & Gynecology
DX: O36.63X0 Maternal care for excessive fetal growth, third trimester, not applicable or unspecified (principal); O99.213 Obesity complicating pregnancy, third trimester; Z3A.38 38 weeks gestation of pregnancy
CPT/HCPCS: 76816

== ENCOUNTER 2023-10-15 05:57 | Outpatient (CLI) | payer OTHER, MEDICAID, SELFPAY ==
[2023-10-15 12:04] VITALS: BP 113/63; PULSE 117; TEMP 36.5
[2023-10-15 12:10] VITALS: BP 113/63; PULSE 117
--- NOTE | 2023-10-15 12:58 | W.OBNST ---
Date of service: 10/15/23 Time of Service: 12:58 NST Evaluation Reason for NST Reasons for Nonstress Test: OTHER, SEE COMMENT Gestational Age Gestational Age in Weeks and Days: 36 Weeks and 3Days Test and Monitor Explained Test/Monitor Explained: Test Explained, Monitor Explained and Patient Verbalized Understanding Vital Signs Blood Pressure: 113/63 Pulse: 117 Temperature: 97.7 F Urine Results Urine Protein: Positive Urine Ketones: Negative Urine Glucose: Negative Urine Blood: Positive NST Information Date on Monitor: 10/15/23 Time on Monitor: 12:03 Date off Monitor: 10/15/23 Time off Monitor: 12:49 Total Time on Monitor: 46 NST Interventions: None Contraction Frequency: 0 NST Evaluation Patient States Movement: Present FHR Baseline: 130 Variability: Moderate 6-25 bpm Accelerations: 15x15 Decelerations: None NST Results: Reactive Note Ultrasound Done: Other. NST Note Note: U/S performed in DI: EFW: 3,539.99g, 7lb 12.72oz, 95.7% Composite Age: 38weeks 5days Nl DOUGLAS. I spoke with pt regarding LGA status.She prefers to deliver vaginally. No plans for any more pregnancies. NST Reviewed and Verified by: Siomara Aguiar
[2023-10-15 13:00] VITALS: BP 113/63; PULSE 117; TEMP 36.5
== END 2023-10-15 12:53 ==
LOC: BCD 05:59 → OBS 11:59
PROVIDERS: PCP Nurse Practitioner Family; Visit Provider Obstetrics & Gynecology Gynecology
DX: O36.63X0 Maternal care for excessive fetal growth, third trimester, not applicable or unspecified (principal); O99.213 Obesity complicating pregnancy, third trimester; O16.3 Unspecified maternal hypertension, third trimester; Z3A.38 38 weeks gestation of pregnancy
CPT/HCPCS: 59025; 76815

== ENCOUNTER 2023-10-18 07:56 | Outpatient (CLI) | payer OTHER, MEDICAID, SELFPAY ==
[2023-10-18] VITALS (8 sets, daily range): BP systolic 125; BP diastolic 67; PULSE 121–128; TEMP 36.6; O2SAT 96–98
--- NOTE | 2023-10-18 12:55 | W.OBNST ---
Date of service: 10/18/23 Time of Service: 12:30 NST Evaluation Reason for NST Reasons for Nonstress Test: CHRONIC HYPERTENSION Gestational Age Gestational Age in Weeks and Days: 36 Weeks and 6Days Test and Monitor Explained Test/Monitor Explained: Test Explained, Monitor Explained and Patient Verbalized Understanding Vital Signs Blood Pressure: 125/67 Pulse: 125 Temperature: 97.9 F Urine Results Urine Protein: Positive Urine Ketones: Positive Urine Glucose: Negative Urine Blood: Positive NST Information Date on Monitor: 10/18/23 Time on Monitor: 12:00 Date off Monitor: 10/18/23 Time off Monitor: 12:32 Total Time on Monitor: 32 NST Interventions: PO Hydration and Notify Provider NST Evaluation Patient States Movement: Present FHR Baseline: 135 Variability: Moderate 6-25 bpm Accelerations: 15x15 Decelerations: None NST Results: Reactive Note Ultrasound Done: N/A. NST Note NST Reviewed and Verified by: Marcia Queen
== END 2023-10-18 12:49 ==
LOC: BCD 07:57 → OBS 11:54
PROVIDERS: PCP Nurse Practitioner Family; Visit Provider Obstetrics & Gynecology
DX: O16.3 Unspecified maternal hypertension, third trimester (principal); Z3A.38 38 weeks gestation of pregnancy
CPT/HCPCS: 59025

== ENCOUNTER 2023-10-22 08:01 | Outpatient (CLI) | payer OTHER, MEDICAID, SELFPAY ==
[2023-10-22 12:08] VITALS: BP 132/61; PULSE 110
[2023-10-22 12:22] VITALS: BP 132/61; PULSE 110; TEMP 36.7
--- NOTE | 2023-10-22 16:51 | W.OBNST ---
Date of service: 10/22/23 Time of Service: 12:30 NST Evaluation Reason for NST Reasons for Nonstress Test: CHRONIC HYPERTENSION Gestational Age Gestational Age in Weeks and Days: 37 Weeks and 3Days Test and Monitor Explained Test/Monitor Explained: Test Explained, Monitor Explained and Patient Verbalized Understanding Vital Signs Blood Pressure: 132/61 Pulse: 110 Temperature: 98.1 F Urine Results Urine Protein: Positive Urine Ketones: Negative Urine Glucose: Negative Urine Blood: Positive NST Information Date on Monitor: 10/22/23 Time on Monitor: 12:04 Date off Monitor: 10/22/23 Time off Monitor: 12:53 Total Time on Monitor: 49 NST Interventions: PO Hydration, Reposition Patient and Notify Provider Contraction Frequency: 0 NST Evaluation Patient States Movement: Present FHR Baseline: 130 Variability: Moderate 6-25 bpm Accelerations: 15x15 Decelerations: None NST Results: Reactive Note Ultrasound Done: N/A. NST Note Note: Discussed recommendation per MD team for 38wks (sunday). She strongly prefers to wait until sometime after sunday because she has a vet appt and an appt for probate for a family member. Will discuss with the team and get back to her. NST Reviewed and Verified by: Marcia Queen
[2023-10-22 16:53] VITALS: BP 132/61; PULSE 110; TEMP 36.7
== END 2023-10-22 13:00 ==
LOC: BCD 08:02 → OBS 12:00
PROVIDERS: PCP Nurse Practitioner Family; Visit Provider Obstetrics & Gynecology
DX: O16.3 Unspecified maternal hypertension, third trimester (principal); Z3A.37 37 weeks gestation of pregnancy
CPT/HCPCS: 59025

== ENCOUNTER 2023-10-25 11:53 | Outpatient (CLI) | payer OTHER, MEDICAID, SELFPAY ==
[2023-10-25 12:07] VITALS: BP 131/60; PULSE 108
[2023-10-25 12:47] VITALS: BP 131/60; PULSE 108; TEMP 36.8
--- NOTE | 2023-10-25 13:13 | W.OBNST ---
Date of service: 10/25/23 Time of Service: 13:13 NST Evaluation Reason for NST Reasons for Nonstress Test: CHRONIC MATERNAL DM Gestational Age Gestational Age in Weeks and Days: 38 Weeks and 1Days Test and Monitor Explained Test/Monitor Explained: Test Explained, Monitor Explained and Patient Verbalized Understanding Vital Signs Blood Pressure: 131/60 Pulse: 108 Temperature: 98.2 F Urine Results Urine Protein: Positive Urine Ketones: Negative Urine Glucose: Negative Urine Blood: Positive NST Information Time on Monitor: 12:04 Date off Monitor: 10/25/23 Time off Monitor: 12:50 NST Interventions: PO Hydration Contraction Frequency: x1 NST Evaluation Patient States Movement: Present FHR Baseline: 140 Variability: Moderate 6-25 bpm Accelerations: 15x15 Decelerations: None NST Results: Reactive Note Ultrasound Done: N/A. NST Note Note: Pt will present to on 10/29/23 for cervical ripening and Oxytocin augmentation of labor with 10/30/23. NST Reviewed and Verified by: Siomara Aguiar
[2023-10-25 13:15] VITALS: BP 131/60; PULSE 108; TEMP 36.8
== END 2023-10-25 13:03 ==
LOC: BCD 11:54 → OBS 12:00
PROVIDERS: PCP Nurse Practitioner Family; Visit Provider Obstetrics & Gynecology Gynecology
DX: O16.3 Unspecified maternal hypertension, third trimester (principal); O99.810 Abnormal glucose complicating pregnancy; Z3A.38 38 weeks gestation of pregnancy
CPT/HCPCS: 59025; 76815

== ENCOUNTER 2023-10-29 18:54 | Inpatient (IN) | payer OTHER, MEDICAID, SELFPAY ==
[2023-10-29] VITALS (35 sets, daily range): BP systolic 122–136; BP diastolic 58–67; PULSE 0–122; RESP 18; TEMP 36.6–36.9; O2SAT 98
[2023-10-29 19:03] LABS: HCT 31.8 % (36.0-46.0); HGB 10.7 g/dL (11.2-15.7); MCH 30.9 pg (27.0-33.0); MCHC 33.6 % (32.0-36.0); MCV 92 fL (80-95); MPV 10.5 fL (8.0-11.0); Platelet Count 287 10^3/uL (130-400); RBC 3.46 10^6/uL (3.93-5.22); RDW 18.6 % (11.7-14.6); RDW-SD 61.1 fL
[2023-10-29] MEDS: miSOPROStol 25 MCG TAB PO ×2 (19:18→23:47)
[2023-10-29] MEDS: Normal Saline Flush 10 ML SYR IVP (19:41)
--- NOTE | 2023-10-29 20:16 | HPE_ITS ---
Date of service: 10/29/23 Time of Service: 20:18 Assessment and Plan Assessment and plan (1) Encounter for induction of labor: Status: Acute Assessment and plan: Patient is a 3 para 2 at 38 weeks and 2 days with induction of labor for chronic hypertension at term. As of note, by ultrasound, she also has a large for gestational age infant. Today, her vital signs are stable with normal blood pressure. She will receive a cervical ripening with nasal Postel followed by Pitocin augmentation. Patient does understand that for active labor arrest, or arrest of descent, delivery would be warranted. All questions were answered. (2) Rh negative state in antepartum period: Status: Acute (3) History of pre-eclampsia in prior , currently : Status: Acute (4) Large for gestational age fetus affecting management of mother: Status: Acute (5) Chronic hypertension affecting : Status: Acute OB-HPI Labor/Delivery History of Present Illness Reason for Visit: Term Chief Complaint: Scheduled Induction of Labor Indication for Induction: Chronic Hypertension. LEELA Calculator Estimated Delivery Date Method Current WG Current Estimate 11/09/23 Ultrasound #1 38w 3d Other Estimates 10/29/23 LMP (Certain) 40w 0d Comments: Patient admitted to the center at 38 weeks and 3 days for labor induction. She has chronic hypertension has been on labetalol. More recently, at her last visit, her blood pressure was somewhat low and for that reason her labetalol has been held. On presentation today blood pressures 120s over 60s. She has no signs or symptoms of preeclampsia. She has appropriate activity. She has occasional uterine contractions. Her cervix was noted to be 2, 50%, -3 station. She received her first dose of oral misoprostol for cervical ripening. She was later rechecked at 11:30 PM. Second dose may be intravaginal. The risk benefits alternatives of labor induction were discussed. She is also aware that with a larger estimated weight, we will carefully monitor her labor progress. All questions were answered. History of Present Expected Delivery Route/Plan - change to MD for HTN (@ 24 wks) FOB/fievans - Froilan Restrpeo (3rd child together) BB (per ultrasound), no circ Specific Issues/Plan 1. cHTN noted in 2nd trimester, begin labetalol 200 mg PO BID @ 19 wks - Hx pre-eclampsia, will take low dose ASA @ 12 wks onward - Prot/creat ratio sent 05/21: nml @ 0.14 -->24 hr urine for protein- El evated 500+ - CMP baseline @ 19 wks=ALT 101, Hep panel neg, Amylase/lipase WNL; recheck LFT's 1 month - wnl - MFM referral placed 08/02/2023 2. BMI 46 - Early [id number], 3-hour GTT at 29 weeks, normal 85/150/146/55 - Declines level 2 ultrasound due to BMI of 46, requests anatomy @ [facility] 3. Rh neg, RhoGam @ 28 wks ___ 4. Asymptomatic bacti-uria (e-coli), rx'ed MacroBid 5. LGA baby: [place]wk [place] [facility] [place] 36wks (10/14): 7lb 12oz >95%ile Declines genetic screenings, accepts Quad screen @ 19 wks - low risk Informed Consent Informed Consent: Induction of Labor Review of Systems Constitutional Constitutional: Reports system reviewed and no additional complaints, except as documented Eyes Eyes: Reports system reviewed and no additional complaints, except as documented ENT Ears, Nose, Mouth, and Throat: Reports system reviewed and no additional complaints, except as documented Cardiovascular Cardiovascular: Reports system reviewed and no additional complaints, except as documented Respiratory Respiratory: Reports system reviewed and no additional complaints, except as documented Gastrointestinal Gastrointestinal: Reports system reviewed and no additional complaints, except as documented Genitourinary Genitourinary: Reports system reviewed and no additional complaints, except as documented Musculoskeletal Musculoskeletal: Reports system reviewed and no additional complaints, except as documented Neurologic Neurologic: Reports system reviewed and no additional complaints, except as documented Psychiatric Psychiatric: Reports system reviewed and no additional complaints, except as documented PFSH All Active Problems (Updated 10/29/23 @ 20:25 by Kristen Padilla DO) Encounter for induction of labor (Acute) Large for gestational age fetus affecting management of mother (Acute) Hematuria (Acute) Elevated glucose level (Acute) LFT elevation (Acute) Chronic hypertension affecting (Acute) History of pre-eclampsia in prior , currently (Acute) Rh negative state in antepartum period (Acute 12/15/14) (Acute) Obesity, Class III, BMI 40-49.9 (morbid obesity) (Chronic) Medical History Family history of thyroid disease in mother COVID-19 virus infection (~2020) Preeclampsia Family History Mother Hyperlipidemia Hypothyroidism Father No problems noted. Sister No problems noted. Brother No problems noted. Maternal Grandfather , 75 Alcohol use disorder Paternal Grandfather No problems noted. Maternal Grandmother No problems noted. Paternal Grandmother No problems noted. Son No problems noted. Daughter No problems noted. Social History Smoking/Tobacco Use Status: Never Second Hand Exposure: Yes Smoking risk assessment performed?: Yes Alcohol Intake: former Drug use: Never Substance use type: does not use Caregiver/Support person: No Household members: children Housing: house Number of Children: 1 Communication Needs: None Do you need help understanding health information?: Never current occupation: [employer] Pets and animals: Yes Pets and animals: cat(s) and dog(s) Sexually active: Yes Do you think of yourself as: straight/heterosexual Current gender identity: female What is your relationship status?: never How often do you talk on the phone with friends or family?: three or more times per week How often do you get together with friends or relatives?: three or more times per week How often do you attend scientology or christianity services?: decline to answer Do you belong to any clubs or organized social groups?: no Panel score (0-1 are the most socially isolated patients): 1 What type of physical activity do you participate in: walking Duration: < 15 minutes/day Frequency: 1-2 times per week Maryjo/Temple: No preference Special maryjo needs: No Seatbelt use: always Helmet use: Yes Drive intox or ride w/intox professional driver: No Do you feel safe at home: Yes Do you feel safe in your relationship?: Yes Female Reproductive History Menstrual Age of Menarche: 9 Duration of menses: 3-5 days control method: condoms History History 3 Para 2 Hx # Term Pregnancies 2 Multiple births 0 Hx # Pregnancies 0 Ectopic pregnancies 0 AB induced 0 Hx Number of Living Children 2 AB spontaneous 0 Past Pregnancies Del. Date GA/Weeks # Preg Succ Route Wgt Sex Labor Lgth Anesth esia Location [facility] 08/13/15 39 No vaginal 7 lb 6 oz Female 12 hrs [facility] in [place] other 12/29/18 41 No vaginal 8 lb 1 oz Male Anea Lelong Delivery Date: 08/13/15 Last Updated by: Dipika Roman IOL with misoprostol for preeclampsia, Sondra. Delivery Date: 12/29/18 Last Updated by: Briana Gibson Spont labor, nml . Edi Meds Allergies and Home Medications Allergies Allergy/AdvReac Type Severity Reaction Status Date / Time No Known Allergies Allergy Verified 09/25/23 14:49 Home Medications Medication Instructions Recorded Confirmed Type vits no.126-ferrous fum 1 tab PO DAILY #90 tabs 03/06/23 10/21/23 Rx 28 mg iron-folic acid 800 mcg tablet (Classic ) aspirin 81 mg tablet,delayed 81 mg PO DAILY #60 tabs 04/24/23 10/21/23 Rx release labetalol 200 mg tablet 200 mg PO BID #60 tabs 06/19/23 10/21/23 Rx Exam Physical Exam Vital signs: Temp Pulse Resp BP Pulse Ox 98.4 F 107 H 18 122/66 98 10/29/23 19:20 10/29/23 19:17 10/29/23 18:14 10/29/23 19:17 10/29/23 18:14 Vital Signs Reviewed: Yes Notable Details: Normal blood pressure, not on labetalol today. Constitutional Constitutional: no acute distress Detailed Labor and Delivery Exam Dilation: 2 Effacement (%): 50 station: -3 Cervix position: mid Consistency: soft Santiago Score: Cervical Points Exam 0 1 2 3 Dilation Closed 1-2cm 3-4 cm 5-6cm Effacement 0-30% 40-50% 60-70% 80% Consistency Firm Medium Soft Station -3 -2 -1,0 +1,+2 Position Posterior Mid Anterior SANTIAGO Score(Cervical Ripeness Score): 5 Amniotic Membrane Status: Intact Contraction Frequency(min): occaisional Fetus A Heart Rate Baseline: 150 Monitor Accelerations: Present Monitor Decelerations: None Variability: Moderate (6-25 BPM) Presentation: Vertex Est. Weight: 8 lb 6 oz HEENT Exam HEENT Exam: Normal Neck Exam Neck Exam: Normal Chest/Brest/Axilla Exam Chest Exam: Normal Respiratory Exam Respiratory Exam: Normal Cardiovascular Exam Cardiovascular Exam: Normal Abdominal Exam Abdominal Exam: Normal Extremities Exam Extremities Exam: Normal Skin Exam Skin Exam: Normal Psychiatric Exam Psychiatric Exam: Normal Results Results Group Beta Strep: Positive Blood Type: A- Rubella Status: Immune Varicella Immunity: Immune Abnormal Lab Findings: Abnormal Labs 10/29/23 18:37 WBC 12.60 H RBC 3.46 L Hgb 10.7 L Hct 31.8 L RDW 18.6 H Risk Assessment Risk for Shoulder Dystocia Historical/Initial OB: POSITIVE FOR: Pre- BMI>30; NEGATIVE FOR: Pelvic Abnormality, Previous Shoulder Dystocia or Previous Macrosomia Increased Risk?: Yes Delivery Plan @ 40 wks: EZEKIEL, anticipate vaginal delivery. All prepared for shoulder dystocia due to body habitus and LGA infant Risk for Pre-Eclampsia Date Initiated/Initials: to start at 12 wks. JK Yes, if one or more: POSTIVE FOR: Hx Pre-E/Gest HTN; NEGATIVE FOR: Chronic HTN, Multiple Gestation, Pre-gestational DM, Renal Disease, Systemic Lupus or APA Syndrome Yes, if 2 or more: POSITIVE FOR: BMI>30; NEGATIVE FOR: Nulliparity, Age>= 35 yrs, >10yr btwn pregnancies, ethinicty, Mother/Sister w/ Pre-E or Previous IUGR Risk for Post- Hemorrhage Initial: NEGATIVE FOR: Multiple Gestation, Previous PPH, Known Clotting Deficiency, Grand Multiparity or Anticoagulation 40 Weeks: POSITIVE FOR: Polyhydraminios At Risk?: Yes Interventions: IV established Counseled re: Active Management: Yes Date/Initials: EZEKIEL 09/29/2023 Risks Reviewed Risks Reviewed Upon Admission: Yes
--- NOTE | 2023-10-29 23:51 | W.PM.OBNL1 ---
Date of service: 10/29/23 Time of Service: 23:51 Informed Consent Informed Consent: Induction of Labor Pelvic Exam Dilation: 2 Effacement (%): 50 station: -3 Cervix Position: mid Consistency: soft Contractions Monitor Mode: External Assessment and Plan Assessment and plan (1) Encounter for induction of labor: Status: Acute Assessment and plan: Misoprostol, 25 mcg placed intravaginally. Group B strep prophylaxis with penicillin G. (2) Large for gestational age fetus affecting management of mother: Status: Acute (3) History of pre-eclampsia in prior , currently : Status: Acute Objective Abnormal lab results 10/29/23 Range/Units 18:37 WBC 12.60 H (4.4-10.8) 10^3/uL RBC 3.46 L (3.93-5.22) 10^6/uL Hgb 10.7 L (11.2-15.7) g/dL Hct 31.8 L (36.0-46.0) % RDW 18.6 H (11.7-14.6) % Temp Pulse Resp BP Pulse Ox 98.3 F 100 H 18 123/58 L 98 10/29/23 23:48 10/29/23 23:48 10/29/23 18:14 10/29/23 23:48 10/29/23 18:14 Laboratory Results WBC 12.60 10^3/uL (4.4-10.8) H 10/29/23 18:37 RBC 3.46 10^6/uL (3.93-5.22) L 10/29/23 18:37 Hgb 10.7 g/dL (11.2-15.7) L 10/29/23 18:37 Hct 31.8 % (36.0-46.0) L 10/29/23 18:37 MCV 92 fL (80-95) 10/29/23 18:37 MCH 30.9 pg (27.0-33.0) 10/29/23 18:37 MCHC 33.6 % (32.0-36.0) 10/29/23 18:37 RDW 18.6 % (11.7-14.6) H 10/29/23 18:37 Plt Count 287 10^3/uL (130-400) 10/29/23 18:37 MPV 10.5 fL (8.0-11.0) 10/29/23 18:37 ABO/Rh A Negative 10/29/23 18:37 Antibody Screen NEGATIVE 10/29/23 18:37 Subjective Interval history since last seen: Patient seen and examined. Resting comfortably. Category 1 heart rate tracing. Contractions every 2 to 5 minutes. Patient is not appreciating them. Results Hemoglobin/Hematocrit: Hgb 10.7 g/dL (11.2-15.7) L 10/29/23 18:37 Hct 31.8 % (36.0-46.0) L 10/29/23 18:37 Abnormal Lab Findings: Abnormal Labs 10/29/23 18:37 WBC 12.60 H RBC 3.46 L Hgb 10.7 L Hct 31.8 L RDW 18.6 H
[2023-10-30] VITALS (267 sets, daily range): BP systolic 110–136; BP diastolic 51–81; PULSE 0–140; RESP 18; TEMP 36.7–37.1; BMI 29.2
[2023-10-30] MEDS: Penicillin G POT. 5,000,000 UNITS in Normal Saline 100 ML 200 UNITS IVPB (00:12)
[2023-10-30] MEDS: Penicillin G POT. 3,000,000 UNITS in Normal Saline 50 ML 100 UNITS IVPB ×2 (03:55→08:23)
[2023-10-30] MEDS: Normal Saline Flush 10 ML SYR IVP (03:56)
--- NOTE | 2023-10-30 07:03 | W.PM.OBNL1 ---
Date of service: 10/30/23 Time of Service: 07:04 Informed Consent Informed Consent: Induction of Labor Pelvic Exam Dilation: 2 Effacement (%): 60 station: -3 Cervix Position: anterior Consistency: soft Contractions Contraction Frequency(min): 3 Intensity: Mild Fetus A Heart Rate Baseline: 140 Variability: Moderate (6-25 BPM) Assessment and Plan Assessment and plan (1) Encounter for induction of labor: Status: Acute Assessment and plan: Labor induction. Status post 2 doses of misoprostol. Group B strep prophylaxis started with penicillin G. Will begin Pitocin augmentation today. If slow to no progress, would consider Murphy balloon overnight versus other options. All questions were answered (2) Large for gestational age fetus affecting management of mother: Status: Acute (3) History of pre-eclampsia in prior , currently : Status: Acute (4) Rh negative state in antepartum period: Status: Acute Objective Abnormal lab results 10/29/23 Range/Units 18:37 WBC 12.60 H (4.4-10.8) 10^3/uL RBC 3.46 L (3.93-5.22) 10^6/uL Hgb 10.7 L (11.2-15.7) g/dL Hct 31.8 L (36.0-46.0) % RDW 18.6 H (11.7-14.6) % Temp Pulse Resp BP Pulse Ox 98.1 F 99 H 18 123/58 L 98 10/30/23 06:22 10/30/23 07:01 10/29/23 18:14 10/30/23 06:22 10/29/23 18:14 Laboratory Results WBC 12.60 10^3/uL (4.4-10.8) H 10/29/23 18:37 RBC 3.46 10^6/uL (3.93-5.22) L 10/29/23 18:37 Hgb 10.7 g/dL (11.2-15.7) L 10/29/23 18:37 Hct 31.8 % (36.0-46.0) L 10/29/23 18:37 MCV 92 fL (80-95) 10/29/23 18:37 MCH 30.9 pg (27.0-33.0) 10/29/23 18:37 MCHC 33.6 % (32.0-36.0) 10/29/23 18:37 RDW 18.6 % (11.7-14.6) H 10/29/23 18:37 Plt Count 287 10^3/uL (130-400) 10/29/23 18:37 MPV 10.5 fL (8.0-11.0) 10/29/23 18:37 ABO/Rh A Negative 10/29/23 18:37 Antibody Screen NEGATIVE 10/29/23 18:37 Subjective Interval history since last seen: Patient seen and examined status post second dose of misoprostol. Slept intermittently. Not appreciating significant contractions. Cervical exam, slightly thin but overall unchanged. In light of her multiparous status, will proceed to Pitocin augmentation. Patient understands that if there is slow progress once in labor, macrosomia may be an issue. Results Hemoglobin/Hematocrit: Hgb 10.7 g/dL (11.2-15.7) L 10/29/23 18:37 Hct 31.8 % (36.0-46.0) L 10/29/23 18:37 Abnormal Lab Findings: Abnormal Labs 10/29/23 18:37 WBC 12.60 H RBC 3.46 L Hgb 10.7 L Hct 31.8 L RDW 18.6 H
[2023-10-30] MEDS: Oxytocin/Normal Saline 30 UNIT/500 ML BAG 2 UNITS IV (08:25)
--- NOTE | 2023-10-30 13:41 | W.PM.OBNL1 ---
Date of service: 10/30/23 Time of Service: 13:41 Informed Consent Informed Consent: Induction of Labor Pelvic Exam Dilation: 2 Effacement (%): 60 station: -2 Cervix Position: mid Consistency: soft Contractions Monitor Mode: External Contraction Frequency(min): 2-3 Intensity: Mild/Moderate Fetus A Monitor: External (US) Heart Rate Baseline: 135 Variability: Moderate (6-25 BPM) Categories: Category I Assessment and Plan Assessment and plan (1) Encounter for induction of labor: Status: Acute Assessment and plan: Continue labor induction. Pitocin at 14. Will have artificial rupture when appropriate. Continue group B strep prophylaxis. (2) Large for gestational age fetus affecting management of mother: Status: Acute Objective Abnormal lab results 10/29/23 Range/Units 18:37 WBC 12.60 H (4.4-10.8) 10^3/uL RBC 3.46 L (3.93-5.22) 10^6/uL Hgb 10.7 L (11.2-15.7) g/dL Hct 31.8 L (36.0-46.0) % RDW 18.6 H (11.7-14.6) % Temp Pulse Resp BP Pulse Ox 98.1 F 107 H 18 126/78 98 10/30/23 09:56 10/30/23 13:37 10/29/23 18:14 10/30/23 12:02 10/29/23 18:14 Laboratory Results WBC 12.60 10^3/uL (4.4-10.8) H 10/29/23 18:37 RBC 3.46 10^6/uL (3.93-5.22) L 10/29/23 18:37 Hgb 10.7 g/dL (11.2-15.7) L 10/29/23 18:37 Hct 31.8 % (36.0-46.0) L 10/29/23 18:37 MCV 92 fL (80-95) 10/29/23 18:37 MCH 30.9 pg (27.0-33.0) 10/29/23 18:37 MCHC 33.6 % (32.0-36.0) 10/29/23 18:37 RDW 18.6 % (11.7-14.6) H 10/29/23 18:37 Plt Count 287 10^3/uL (130-400) 10/29/23 18:37 MPV 10.5 fL (8.0-11.0) 10/29/23 18:37 ABO/Rh A Negative 10/29/23 18:37 Antibody Screen NEGATIVE 10/29/23 18:37 Subjective Interval history since last seen: Patient seen and examined. Doing well. Slight increase in Results Hemoglobin/Hematocrit: Hgb 10.7 g/dL (11.2-15.7) L 10/29/23 18:37 Hct 31.8 % (36.0-46.0) L 10/29/23 18:37 Abnormal Lab Findings: Abnormal Labs 10/29/23 18:37 WBC 12.60 H RBC 3.46 L Hgb 10.7 L Hct 31.8 L RDW 18.6 H
--- NOTE | 2023-10-30 16:50 | W.PM.OBNL1 ---
Date of service: 10/30/23 Time of Service: 16:53 Informed Consent Informed Consent: Augmentation of Labor and Induction of Labor Pelvic Exam Dilation: 3 Effacement (%): 60 station: -2 Cervix Position: mid Consistency: soft Contractions Monitor Mode: External Contraction Frequency(min): 2-3 Contraction Duration(sec): 60 Intensity: Moderate Fetus A Monitor: External (US) Heart Rate Baseline: 140 Variability: Moderate (6-25 BPM) Categories: Category I Accelerations: 15 X 15 Amniotic Membrane Status: Ruptured Assessment and Plan Assessment and plan (1) Encounter for induction of labor: Status: Acute Assessment and plan: Labor induction due to chronic hypertension. Artificial rupture membranes for copious clear fluid. Baby is large for gestational age. Will carefully monitor progress with Pitocin (2) Large for gestational age fetus affecting management of mother: Status: Acute (3) Rh negative state in antepartum period: Status: Acute Objective Abnormal lab results 10/29/23 Range/Units 18:37 WBC 12.60 H (4.4-10.8) 10^3/uL RBC 3.46 L (3.93-5.22) 10^6/uL Hgb 10.7 L (11.2-15.7) g/dL Hct 31.8 L (36.0-46.0) % RDW 18.6 H (11.7-14.6) % Temp Pulse Resp BP Pulse Ox 98.1 F 89 18 121/74 98 10/30/23 09:56 10/30/23 16:45 10/29/23 18:14 10/30/23 16:29 10/29/23 18:14 Laboratory Results WBC 12.60 10^3/uL (4.4-10.8) H 10/29/23 18:37 RBC 3.46 10^6/uL (3.93-5.22) L 10/29/23 18:37 Hgb 10.7 g/dL (11.2-15.7) L 10/29/23 18:37 Hct 31.8 % (36.0-46.0) L 10/29/23 18:37 MCV 92 fL (80-95) 10/29/23 18:37 MCH 30.9 pg (27.0-33.0) 10/29/23 18:37 MCHC 33.6 % (32.0-36.0) 10/29/23 18:37 RDW 18.6 % (11.7-14.6) H 10/29/23 18:37 Plt Count 287 10^3/uL (130-400) 10/29/23 18:37 MPV 10.5 fL (8.0-11.0) 10/29/23 18:37 ABO/Rh A Negative 10/29/23 18:37 Antibody Screen NEGATIVE 10/29/23 18:37 Subjective Interval history since last seen: Patient seen and examined. Doing well. Feeling contractions approximately every 2 minutes. Pitocin is at 15. Permission for artificial rupture. All questions answered. Results Hemoglobin/Hematocrit: Hgb 10.7 g/dL (11.2-15.7) L 10/29/23 18:37 Hct 31.8 % (36.0-46.0) L 10/29/23 18:37 Abnormal Lab Findings: Abnormal Labs 10/29/23 18:37 WBC 12.60 H RBC 3.46 L Hgb 10.7 L Hct 31.8 L RDW 18.6 H
--- NOTE | 2023-10-30 18:53 | W.PM.OBNL1 ---
Date of service: 10/30/23 Time of Service: 18:53 Informed Consent Informed Consent: Augmentation of Labor and Induction of Labor Pelvic Exam Dilation: 2 Effacement (%): 60 station: -2 Cervix Position: mid Consistency: soft Pooling: Positive Contractions Monitor Mode: External Contraction Frequency(min): 3 Intensity: Strong Fetus A Heart Rate Baseline: 140 Variability: Moderate (6-25 BPM) Categories: Category I FHR Rhythm: Regular Accelerations: Present Decelerations: Variable Assessment and Plan Assessment and plan (1) Encounter for induction of labor: Status: Acute Assessment and plan: Continue labor induction with Pitocin. Will recheck cervical exam in approximately 2 hours. If no change consider delivery. All questions answered. Patient, family, all involved in the decision-making process. (2) Large for gestational age fetus affecting management of mother: Status: Acute (3) Chronic hypertension affecting : Status: Acute Objective Abnormal lab results 10/29/23 Range/Units 18:37 WBC 12.60 H (4.4-10.8) 10^3/uL RBC 3.46 L (3.93-5.22) 10^6/uL Hgb 10.7 L (11.2-15.7) g/dL Hct 31.8 L (36.0-46.0) % RDW 18.6 H (11.7-14.6) % Temp Pulse Resp BP Pulse Ox 98.2 F 110 H 18 126/81 98 10/30/23 18:44 10/30/23 18:45 10/29/23 18:14 10/30/23 18:43 10/29/23 18:14 Laboratory Results WBC 12.60 10^3/uL (4.4-10.8) H 10/29/23 18:37 RBC 3.46 10^6/uL (3.93-5.22) L 10/29/23 18:37 Hgb 10.7 g/dL (11.2-15.7) L 10/29/23 18:37 Hct 31.8 % (36.0-46.0) L 10/29/23 18:37 MCV 92 fL (80-95) 10/29/23 18:37 MCH 30.9 pg (27.0-33.0) 10/29/23 18:37 MCHC 33.6 % (32.0-36.0) 10/29/23 18:37 RDW 18.6 % (11.7-14.6) H 10/29/23 18:37 Plt Count 287 10^3/uL (130-400) 10/29/23 18:37 MPV 10.5 fL (8.0-11.0) 10/29/23 18:37 ABO/Rh A Negative 10/29/23 18:37 Antibody Screen NEGATIVE 10/29/23 18:37 Subjective Interval history since last seen: Patient seen and examined this evening. Feeling contractions. Regular contraction pattern with uterine activity every 2 minutes. Palpate strong. Vaginal examination performed. Cervix unchanged, 2 to 3 cm, 60%, -2. Persistent fluid leaking. Discussed with patient and family ongoing issues related to size, labor. Slow and small margin for abdominal delivery in light of estimated size. No caput no molding present. Results Hemoglobin/Hematocrit: Hgb 10.7 g/dL (11.2-15.7) L 10/29/23 18:37 Hct 31.8 % (36.0-46.0) L 10/29/23 18:37 Abnormal Lab Findings: Abnormal Labs 10/29/23 18:37 WBC 12.60 H RBC 3.46 L Hgb 10.7 L Hct 31.8 L RDW 18.6 H
[2023-10-30] MEDS: Lactated Ringers 1,000 ML 125 ML IV (20:03)
--- NOTE | 2023-10-30 21:08 | W.PM.OBNL1 ---
Date of service: 10/30/23 Time of Service: 21:08 Informed Consent Informed Consent: Augmentation of Labor and Induction of Labor Pelvic Exam Dilation: 3 Effacement (%): 60 station: -3 Cervix Position: anterior Consistency: soft Pooling: Positive Contractions Monitor Mode: External Contraction Frequency(min): 2-3 Contraction Duration(sec): 60 Fetus A Monitor: External (US) Heart Rate Baseline: 140 Presentation: Vertex Variability: Moderate (6-25 BPM) Categories: Category I Assessment and Plan Assessment and plan (1) Encounter for induction of labor: Status: Acute Assessment and plan: Failed induction with arrest of labor. No descent. Slow progress. Patient desires delivery. Risk benefits and alternatives discussed. Patient will receive preoperative antibiotics, pneumatic compression stockings for DVT prophylaxis, Murphy catheter. Or crew and anesthesia notified. (2) Large for gestational age fetus affecting management of mother: Status: Acute (3) History of pre-eclampsia in prior , currently : Status: Acute (4) Chronic hypertension affecting : Status: Acute (5) Arrested labor: Status: Acute Objective Temp Pulse Resp BP Pulse Ox 98.7 F 96 H 18 119/58 L 98 10/30/23 20:51 10/30/23 20:52 10/29/23 18:14 10/30/23 20:52 10/29/23 18:14 Laboratory Results WBC 12.60 10^3/uL (4.4-10.8) H 10/29/23 18:37 RBC 3.46 10^6/uL (3.93-5.22) L 10/29/23 18:37 Hgb 10.7 g/dL (11.2-15.7) L 10/29/23 18:37 Hct 31.8 % (36.0-46.0) L 10/29/23 18:37 MCV 92 fL (80-95) 10/29/23 18:37 MCH 30.9 pg (27.0-33.0) 10/29/23 18:37 MCHC 33.6 % (32.0-36.0) 10/29/23 18:37 RDW 18.6 % (11.7-14.6) H 10/29/23 18:37 Plt Count 287 10^3/uL (130-400) 10/29/23 18:37 MPV 10.5 fL (8.0-11.0) 10/29/23 18:37 ABO/Rh A Negative 10/29/23 18:37 Antibody Screen NEGATIVE 10/29/23 18:37 Subjective Interval history since last seen: Patient is seen and examined. Appreciating contractions with Pitocin at 16. Repeat cervical exam with no cervical change. Still 2 to 3 cm, 60%, -2-3 station, no caput, no molding. Continued fluid loss. We discussed ongoing Pitocin augmentation versus abdominal delivery with section. Patient expresses a strong desire to be done. We discussed again the potential complications of vaginal versus delivery which include but are not limited to infection, bleeding, injury to surrounding organs, risk of anesthesia, risk of thromboembolism. Full informed consent was obtained for delivery. Joint decision-making utilized. OR crew notified. Anesthesia notified insole toe snipping machine operator will be notified. All questions answered. Results Hemoglobin/Hematocrit: Hgb 10.7 g/dL (11.2-15.7) L 10/29/23 18:37 Hct 31.8 % (36.0-46.0) L 10/29/23 18:37 Abnormal Lab Findings: Abnormal Labs 10/29/23 18:37 WBC 12.60 H RBC 3.46 L Hgb 10.7 L Hct 31.8 L RDW 18.6 H
[2023-10-30] MEDS: AZITHROMYCIN 500 MG in Normal Saline 250 ML 250 MG IVPB (21:20)
--- NOTE | 2023-10-30 21:37 | ANES.PREOP_ITS ---
General Info Date of Service Date Performed: 10/30/23 Height: 5 ft 2 in Weight: 72.575 kg Body Mass Index (BMI): 29.2 Meds Allergies and Home Medications Allergies Allergy/AdvReac Type Severity Reaction Status Date / Time No Known Allergies Allergy Verified 09/25/23 14:49 Home Medication Medication Instructions Recorded vits no.126-ferrous fum 1 tab PO DAILY #90 tabs 03/06/23 28 mg iron-folic acid 800 mcg tablet (Classic ) labetalol 200 mg tablet 200 mg PO BID #60 tabs 06/19/23 Current Visit Medications: Current Medications Generic Name Dose Route Start Last Admin Trade Name Freq PRN Reason Stop Dose Admin Citric Acid/Sodium Citrate 30 ml 10/30/23 22:00 Sodium Citrate 30 Ml Cup PO PREOP ADRIENNE Ringer's Solution 1,000 mls @ 200 mls/hr 10/29/23 18:00 IV INFUSION ADRIENNE Penicillin G Potassium 3,000, 50 mls @ 100 mls/hr 10/30/23 01:00 10/30/23 16:58 000 units/ Sodium Chloride IVPB Infused Q4H ADRIENNE Infusion Ringer's Solution 1,000 mls @ 125 mls/hr 10/30/23 07:45 IV INFUSION ADRIENNE Oxytocin/Sodium Chloride 30 unit in 500 mls @ 2 mls/hr 10/30/23 07:45 10/30/23 21:02 Pitocin/Normal Saline IV 0 milliunits/min INFUSION ADRIENNE 0 mls/hr Titration Protocol 2 MILLIUNITS/MIN Cefazolin Sodium/Dextrose 2 gm in 50 mls @ 100 mls/hr 10/30/23 21:15 Ancef Duplex IVPB PREOP ADRIENNE Azithromycin 500 mg/ Sodium 250 mls @ 250 mls/hr 10/30/23 21:15 10/30/23 21:20 Chloride IVPB 250 mls/hr PREOP ADRIENNE Administration Ringer's Solution 1,000 mls @ 200 mls/hr 10/30/23 21:15 IV INFUSION ADRIENNE IV Miscellaneous Supplies 1 each 10/29/23 18:00 Iv Access IV DIRECTED ADRIENNE IV Miscellaneous Supplies 1 each 10/29/23 20:30 Iv Access IV DIRECTED ADRIENNE IV Miscellaneous Supplies 1 each 10/30/23 07:45 Iv Access IV DIRECTED ADIRENNE IV Miscellaneous Supplies 1 each 10/30/23 21:15 Iv Access IV DIRECTED ADRIENNE Misoprostol 25 mcg 10/29/23 18:00 10/29/23 23:47 Misoprostol 25 Mcg Tab PO 25 mcg Q4H ADRIENNE Administration Sodium Chloride 0 ml 10/29/23 18:54 Normal Saline Flush 10 Ml Syr IVP PRN PRN Sodium Chloride 0 ml 10/29/23 18:00 10/30/23 03:56 Normal Saline Flush 10 Ml Syr IVP 10 ml BID ADRIENNE Administration Sodium Chloride 0 ml 10/29/23 18:54 Normal Saline 10 Ml Vial IJ DIRECTED PRN Sodium Chloride 0 ml 10/29/23 20:27 Normal Saline Flush 10 Ml Syr IVP PRN PRN Sodium Chloride 0 ml 10/30/23 08:30 Normal Saline Flush 10 Ml Syr IVP BID ADRIENNE Sodium Chloride 0 ml 10/29/23 20:27 Normal Saline 10 Ml Vial IJ DIRECTED PRN Sodium Chloride 0 ml 10/30/23 21:03 Normal Saline Flush 10 Ml Syr IVP PRN PRN Sodium Chloride 0 ml 10/31/23 08:30 Normal Saline Flush 10 Ml Syr IVP BID ADRIENNE Sodium Chloride 0 ml 10/30/23 21:03 Normal Saline 10 Ml Vial IJ DIRECTED PRN Terbutaline Sulfate 0.25 mg 10/29/23 18:54 Terbutaline 1 Mg/Ml Vial SC PRN PRN PFSH Active Problems Active Problems: Problem Status Onset Code Arrested labor O62.1 Encounter for induction of labor Z34.90 Large for gestational age fetus affecting management of mother O36.60X0 Hematuria R31.9 Elevated glucose level R73.09 LFT elevation R79.89 Chronic hypertension affecting O10.919 History of pre-eclampsia in prior , currently O09.299 Rh negative state in antepartum period 12/15/14 O09.899, Z67.91 Z34.90 Obesity, Class III, BMI 40-49.9 (morbid obesity) E66.01 Medical History Medical History Family history of thyroid disease in mother COVID-19 virus infection (~2020) Preeclampsia Tobacco Smoking/Tobacco Use Status: Never Passive smoking exposure: Yes Second hand exposure: Yes Alcohol Alcohol Intake: former Substance Use Substance use: Never Substance use type: does not use Prental History History 2 3 Para 2 Hx # Term Pregnancies 2 Multiple births 0 Hx # Pregnancies 0 Ectopic pregnancies 0 AB induced 0 Hx Number of Living Children 2 AB spontaneous 0 Past Pregnancies Del. Date GA/Weeks # Preg Succ Route Wgt Sex Labor Lgth Anesth esia Location Prov [facility] 08/13/15 39 No vaginal 3345.244 g Female 12 hrs [facility] in [place] other 12/29/18 41 No vaginal 3657.088 g Male Anea [facility] Delivery Date: 08/13/15 Last Updated by: Dipika Roman IOL with misoprostol for preeclampsia, [facility]. Delivery Date: 12/29/18 Last Updated by: Briana Gibson Spont labor, nml . Edi Vital Signs and Lab Results Vital Signs Most Recent Vital Signs in EMR: Most Recent Vital Signs Temp Pulse Resp BP Pulse Ox 37.1 C 96 H 18 119/58 L 98 10/30/23 20:51 10/30/23 20:52 10/29/23 18:14 10/30/23 20:52 10/29/23 18:14 Lab Results 10/29/23 18:37 Blood Type / Crossmatch: 2 Antibody Screen NEGATIVE 10/29/23 Complete Blood Count: 2 White Blood Count 12.60 10^3/uL (4.4-10.8) H 10/29/23 18:37 Red Blood Count 3.46 10^6/uL (3.93-5.22) L 10/29/23 18:37 Hemoglobin 10.7 g/dL (11.2-15.7) L 10/29/23 18:37 Hematocrit 31.8 % (36.0-46.0) L 10/29/23 18:37 Platelet Count 287 10^3/uL (130-400) 10/29/23 18:37 Complete Metabolic Panel: 2 Sodium 140 mmol/L (136-145) 10/08/23 13:05 Potassium 3.9 mmol/L (3.5-5.1) 10/08/23 13:05 Chloride 105 mmol/L (98-107) 10/08/23 13:05 Carbon Dioxide 22.2 mmol/L (21.0-32.0) 10/08/23 13:05 BUN 7 mg/dL (7-18) 10/08/23 13:05 Creatinine 0.5 mg/dL (0.55-1.02) L 10/08/23 13:05 Est GFR (CKD-EPI 2020) 129.32 (mL/min/1.73m2) 10/08/23 13:05 Calcium 8.9 mg/dL (8.5-10.1) 10/08/23 13:05 Albumin 3.1 g/dL (3.4-5.0) L 10/08/23 13:05 Glucose 92 mg/dL (74-106) 10/08/23 13:05 Liver Function Panel: 2 Alanine Aminotransferase (ALT/SGPT) 38 U/L (14-59) 10/08/23 13: 05 Aspartate Amino Transf (AST/SGOT) 20 U/L (15-37) 10/08/23 13:05 Coagulation Panel: 2 No Data to Display Cardiac Panel: 2 No Data to Display Arterial Blood Gas: 2 No Data to Display Venous Blood Gas: 2 No Data to Display Pancreas Panel: 2 No Data to Display Thyroid Panel: 2 No Data to Display Infectious Disease: 2 No Data to Display Blood Cultures: 2 No Data to Display Toxicology Panel: 2 No Data to Display Panel: 2 No Data to Display Anesthesia Assessment and Plan Anesthesia History Personal History: No History of Anesthesia Complications Family History: No Family History of Anesthesia Complications Exercise Tolerance Exercise Tolerance: Metabolic Equivalents>4 Pertinent Negatives Pertinent Negatives: No Symptoms of GERD, No Major Cardiovascular Symptoms or Complaints and No Major Pulmonary Symptoms or Complaints Cardiac & Pulmonary Exam Cardiac Exam: Normal S1/S2 Heart Sounds Pulmonary Exam: Clear Bilateral Breath Sounds Implantable Cardiac Device Does patient have a Pacemaker or an ICD?: No Airway Exam Known Difficult Airway: No Mallampati Class: 2 Mouth Opening: Normal (> 3cm) Thyromental Distance: Greater than 3 cm Neck Range of Motion: Full ROM Neck Circumference: Normal Teeth Condition: Normal Dentition ASA Classification ASA Score: ASA 2 Emergency Case?: No NPO Status NPO Status: Full Stomach Status Status: Confirmed Anesthesia Plan Resuscitation Status: Full Code Anesthesia Technique: Spinal Anesthesia Airway Planned: Natural Airway Pain Management: Intrathecal Analgesia Monitors Used: Standard Monitors
[2023-10-30] MEDS: ceFAZolin 2 GM/50 ML BAG IVPB (22:03)
[2023-10-30] MEDS: Bupivacaine 0.25% Pres-Free 30 ML VIAL (22:28)
[2023-10-31] VITALS (25 sets, daily range): BP systolic 99–131; BP diastolic 50–80; PULSE 78–101; RESP 16–20; TEMP 36.6–36.8; O2SAT 96–98
--- NOTE | 2023-10-31 00:20 | PDOC.OPNB_ITS ---
Date of service: 10/31/23 Time of Service: 00:20 Operative Note Operative Note Delivery Method: Unscheduled STAT: No and Primary NTSV>37 Weeks: No DATE OF PROCEDURE: 10/31/23 PRE-OP DIAGNOSES: Term , failed induction, arrest of labor PROCEDURE: Primary low-transverse section SURGEON: Kristen Padilla Electrical Tester Battery: Hien Handy Anesthesia: local and spinal Estimated blood loss (mL): 600 Pathology: none sent Complications: None Patient was transported to: floor Patient's condition: stable Indications: No labor progress despite cervical ripening, Pitocin augmentation, artificial rupture of membranes. Suspected macrosomia with poor descent into the pelvis. Findings: Delivery of viable male infant. Normal tubes, ovaries, uterus Procedure Description: After labor induction processes were discussed with the patient including cervical ripening, followed by Pitocin augmentation, followed by artificial rupture of membranes with no progress, dilation, or descent, the risk, benefits, and alternatives of delivery versus ongoing induction were discussed with the patient. Full informed consent was obtained for surgical intervention. Patient was taken the operating suite with an IV running where she was placed in the seated position. Spinal anesthesia was administered, tested, and found to be adequate. She was placed in the dorsal supine position with leftward tilt. heart tones were found to be 135. She had a perineal preparation and vaginal preparation and Murphy catheter was inserted. She had DVT prophylaxis with pneumatic compression stockings. She received 2 g of Ancef, and 500 mg of Zithromax for surgical site infection prophylaxis. She was placed in the dorsal supine position with a leftward tilt. She was prepped and draped at this point in the usual sterile fashion a Pfannenstiel skin incision was made and carried down to the underlying fascia. The fascia was incised in the midline and extended laterally. The fascia was split from the rectus muscles, rectus muscle s were split in the midline and the peritoneum identified. The peritoneal incision was extended superiorly and inferiorly and the bladder blade was inserted. The vesicouterine peritoneum was identified tented up and entered sharply and the bladder flap was created. The bladder blade was reinserted and a low transverse uterine incision made and extended laterally with a scalpel. The vertex was delivered without trauma, shoulders followed with ease, there was evidence of a three-vessel cord which was clamped x 2 and cut after the appropriate delayed cord clamping. The baby was then handed off to the waiting emr analyst. At this point cord blood sample was obtained and the placenta was manually expressed from the uterus. The uterus was exteriorized and cleared of all clot and debris. The uterine incision was then closed using 0 Monocryl suture in a running locked fashion initially, followed by an imbricating suture. There was 1 area in the midline that was not hemostatic w hich was oversewn with a [id number] suture. The peritoneal incision edges were somewhat oozy and were cauterized to achieve hemostasis. This point the uterus was returned to the abdomen and the uterine incision again reinspected and noted to be hemostatic. Fascial incision was closed using 0 Vicryl suture in a running fashion. There was 1 area at the subfascial space with single vessel which continue to bleed. This area was oversewn with a [id number] suture and hemostat. Remainder of the fascial incision was closed using 0 Vicryl suture. Subcutaneous tissue was irrigated with copious amounts of normal saline and the subcu space reapproximated with 3-0 Vicryl in a simple interrupted fashion. Skin edge was reapproximated with 4-0 undyed Monocryl. Steri-Strips and sterile dressing were placed. Patient was returned to the center in stable condition with a Murphy catheter draining clear yellow urine. EBL: 600 mL Pathology: None sent Findings: Normal tubes, ovaries, uterus. Delivery of a viable male infant Fluids: Crystalloid per anesthesia Complications: None apparent
[2023-10-31] MEDS: Ketorolac 30 MG/ML VIAL IVP ×3 (05:48→18:32)
[2023-10-31] MEDS: Normal Saline Flush 10 ML SYR IVP ×3 (05:49→18:32)
[2023-10-31 07:55] LABS: Absolute Lymphocyte Count 2.57 10^3/uL (1.2-3.4); Absolute Monocyte Count 1.19 10^3/uL (0.1-0.8); Basophils % 0.3 %; Eosinophils % 0.7 %; HCT 29.3 % (36.0-46.0); HGB 9.8 g/dL (11.2-15.7); Immature Grans % 0.7 %; Lymphocytes % 16.8 %; MCH 30.8 pg (27.0-33.0); MCHC 33.4 % (32.0-36.0); MCV 92 fL (80-95); MPV 10.8 fL (8.0-11.0); Monocytes % 7.8 %; Neutrophils % 73.7 %; Platelet Count 258 10^3/uL (130-400); RBC 3.18 10^6/uL (3.93-5.22); RDW 18.7 % (11.7-14.6); RDW-SD 61.4 fL; WBC 15.27 10^3/uL (4.4-10.8)
[2023-10-31 08:01] LABS: Absolute Basophil Count 0.05 10^3/uL (0.0-0.2); Absolute Eosinophil Count 0.11 10^3/uL (0.0-0.7); Absolute Neutrophil Count 11.25 10^3/uL (1.2-6.7)
--- NOTE | 2023-10-31 08:11 | W.ANESPOSTOP ---
Postoperative Evaluation Date, Time and Location Date Performed: 10/31/23 Time Performed: 08:02 Patient Location: Obstetrics Vital Signs Most Recent Imported Vital Signs: Most Recent Vital Signs Temp Pulse Resp BP Pulse Ox 36.8 C 89 16 115/71 98 10/31/23 03:45 10/31/23 03:45 10/31/23 06:00 10/31/23 03:45 10/31/23 03:45 Pain Score Most Recent Pain Score: Most Recent Pain Score Pain Level 0 10/31/23 06:00 Assessment Mental Status: Awake (Alert & Oriented to Patient Baseline) Airway and Respiratory Function: Patent airway with normal (patient baseline) respiratory exam Cardiovascular Function: Hemodynamically Stable Hydration Status: Adequately Hydrated Nausea & Vomiting: No Nausea or Vomiting Pain: Pain is tolerable per patient Peripheral Nerve Block: Patient did not receive a nerve block
--- NOTE | 2023-10-31 10:04 | W.PM.OBPNV1 ---
Date of service: 10/31/23 Time of Service: 10:04 Assessment and Plan Assessment and plan (1) Status post primary low transverse section: Status: Acute Assessment and plan: Patient is postoperative day 1 status post primary low-transverse section. Doing well. Transition from parenteral to oral pain medication. Ambulate. Supportive care. Anticipate routine postoperative and progress note. Subjective Subjective Interval history: Patient seen and examined postoperative day #1 status post primary low-transverse section. She is doing well. Her pain is well-controlled. Her vital signs are stable. She is up in a chair. Hemoglobin is stable at 9.8. [place] baby status: Doing well, Nursing well and Strong Bonding Observed feeding status: Exclusively breast feeding Exam Physical Exam Vital signs: Temp Pulse Resp BP Pulse Ox 98.1 F 99 H 20 116/73 96 10/31/23 09:30 10/31/23 09:30 10/31/23 09:30 10/31/23 09:30 10/31/23 09:30 Vital Signs Reviewed: Yes Constitutional Constitutional: no acute distress HEENT Exam HEENT Exam: Normal Respiratory Exam Respiratory Exam: Normal Cardiovascular Exam Cardiovascular Exam: Normal Abdominal Exam Abdomen: Tender Comments: Incision dressed Fundal Exam Fundus: Below Umbilicus and Firm Extremities Exam Extremity Exam: Normal; negative Calf Tenderness Psychiatric Exam Psychiatric Exam: Normal Results Hemoglobin/Hematocrit: Hgb 9.8 g/dL (11.2-15.7) L 10/31/23 06:13 Hct 29.3 % (36.0-46.0) L 10/31/23 06:13 Abnormal Lab Findings: Abnormal Labs 10/29/23 10/31/23 18:37 06:13 WBC 12.60 H 15.27 H RBC 3.46 L 3.18 L Hgb 10.7 L 9.8 L Hct 31.8 L 29.3 L RDW 18.6 H 18.7 H Absolute Neutrophils 11.25 H Absolute Monocytes 1.19 H
[2023-10-31] MEDS: RHO(D) Immune Globulin 1,500 UNIT Syringe 1500 UNIT IM (14:51)
[2023-11-01] MEDS: Ibuprofen 600 MG TAB PO (02:38)
--- NOTE | 2023-11-01 08:13 | W.PM.OBPNV1 ---
Date of service: 11/01/23 Time of Service: 08:13 Assessment and Plan Assessment and plan (1) Status post primary low transverse section: Status: Acute Assessment and plan: Postop day 2 status post primary low-transverse section. Overall doing well. Would anticipate discharge home later today, or early tomorrow. All questions were answered. Follow-up as scheduled in 1, 2, and 6 weeks. (2) Rh negative state in antepartum period: Status: Acute Subjective Subjective Interval history: Patient seen and examined this morning. Doing well. No issues or concerns. Pain is well-controlled. Ambulating, tolerating regular diet and oral pain medication. Breast-feeding without difficulty. Anticipate discharge home today or tomorrow. baby status: Doing well, Nursing well and Strong Bonding Observed Exam Physical Exam Vital signs: Temp Pulse Resp BP Pulse Ox 98.2 F 98 H 17 115/72 98 10/31/23 20:35 10/31/23 20:35 10/31/23 20:35 10/31/23 20:35 10/31/23 20:35 Vital Signs Reviewed: Yes HEENT Exam HEENT Exam: Normal Neck Exam Neck Exam: Normal Respiratory Exam Respiratory Exam: Normal Cardiovascular Exam Cardiovascular Exam: Normal Abdominal Exam Abdomen: Tender Comments: Mepilex dressing in place Fundal Exam Fundus: Below Umbilicus and Firm Extremities Exam Extremity Exam: Normal and Edema (1+ bilateral); negative Calf Tenderness Skin Exam Skin Exam: Normal Neurological Exam Neurological Exam: Normal Psychiatric Exam Psychiatric Exam: Normal Results Hemoglobin/Hematocrit: Hgb 9.8 g/dL (11.2-15.7) L 10/31/23 06:13 Hct 29.3 % (36.0-46.0) L 10/31/23 06:13 Abnormal Lab Findings: Abnormal Labs 10/29/23 10/31/23 18:37 06:13 WBC 12.60 H 15.27 H RBC 3.46 L 3.18 L Hgb 10.7 L 9.8 L Hct 31.8 L 29.3 L RDW 18.6 H 18.7 H Absolute Neutrophils 11.25 H Absolute Monocytes 1.19 H
--- NOTE | 2023-11-01 08:19 | W.PM.OBDISCH ---
Date of service: 11/01/23 Time of Service: 08:19 DS: Diagnosis Discharge Diagnosis (1) Status post primary low transverse section: Status: Acute Asessment and Plan: Postoperative day #2 status post primary low-transverse section. Doing well. Discharge home today. Follow-up in 1, 2, and 6 weeks. (2) Rh negative state in antepartum period: Status: Acute Discharge Plan Disposition Patient Disposition: Home Condition: Improving Discharge Details Reason For Visit: Term Admit Date/Time: 10/29/23 18:54 Admit Provider: Kristen Padilla Attending Provider: Kristen Padilla Primary Care Provider: [facility] Course Hospital Course: Patient was admitted for labor induction. She received misoprostol for cervical ripening, followed by Pitocin augmentation. She had a maximum Pitocin dose of 18, she had artificial rupture membranes for clear fluid and failed to progress beyond 2 to 3 cm. Baby did not descend low into the pelvis and in light of the fact that there was suspicion for LGA baby, and no active labor, the decision was made for her to undergo primary low-transverse section. Risk benefits and alternatives have been discussed and she underwent her section. She delivered a viable male with Apgars of 9 and 9. She had uncomplicated postoperative course and was discharged home postoperative day #2 ambulating, tolerating oral pain medication and stable vital signs. Follow-up in the office in 1, 2, and 6 weeks. All questions were answered. Home Meds and New Rx's Prescriptions: New ibuprofen 800 mg tablet 800 mg PO Q8H PRNQty: 60 1RF docusate sodium [Colace] 100 mg capsule 100 mg PO BID Qty: 30 1RF Continued Classic 28 mg iron- 800 mcg tablet 1 tab PO DAILY Qty: 90 3RF Hold Instructions: Pt Stopped/Never Started Rx Instructions: may substitute Discontinued labetalol 200 mg tablet 200 mg PO BID Qty: 60 5RF Hold Instructions: Pt Stopped/Never Started Discharge Instructions Additional Instructions: Follow-up with Dr. Padilla in 1, 2, and 6 weeks. Stand Alone Forms: BC Instructions, BC Discharge Instruc Activity:: No heavy lifting, pelvic Equipment/Supplies:: No Equipment Needed Diet:: As Tolerated Discharge Orders Discharge Orders: Discharge Order (Routine); Ordered 11/01/23 Ordered By: Kristen Padilla OB:DS Summary Contraception Discussed Contraception Discussed: Yes, [place] Gender-Baby A: Male weight: 7 lb 10.224 oz Status at Discharge Functional status at discharge: independent ambulation Overall status at discharge: patient is progressing back to baseline Mental Status: mental status grossly normal Speech and Movement: speech and movement normal Mood: congruent mood Affect: normal affect Quality:SDOH Health Related Social Needs: No Data to Display Exam Physical Exam Vital signs: Temp Pulse Resp BP Pulse Ox 98.2 F 98 H 17 115/72 98 10/31/23 20:35 10/31/23 20:35 10/31/23 20:35 10/31/23 20:35 10/31/23 20:35 Narrative: See physical exam from progress note dated 11/01/2023 [facility] All Active Problems (Updated 10/30/23 @ 21:11 by Kristen Padilla DO) Status post primary low transverse section (Acute) Primary low-transverse section 10/30/2023. Failed induction. Baby boy Arrested labor (Acute) Encounter for induction of labor (Acute) Large for gestational age fetus affecting management of mother (Acute) Hematuria (Acute) Elevated glucose level (Acute) LFT elevation (Acute) Chronic hypertension affecting (Acute) History of pre-eclampsia in prior , currently (Acute) Rh negative state in antepartum period (Acute 12/15/14) (Acute) Obesity, Class III, BMI 40-49.9 (morbid obesity) (Chronic) Medical History Family history of thyroid disease in mother COVID-19 virus infection (~2020) Preeclampsia Family History Mother Hyperlipidemia Hypothyroidism Father No problems noted. Sister No problems noted. Brother No problems noted. Maternal Grandfather , 75 Alcohol use disorder Paternal Grandfather No problems noted. Maternal Grandmother No problems noted. Paternal Grandmother No problems noted. Son No problems noted. Daughter No problems noted. 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 Pets and animals: Yes Pets and animals: cat(s) and dog(s) Sexually active: Yes Do you think of yourself as: straight/heterosexual Current gender identity: female What is your relationship status?: never How often do you talk on the phone with friends or family?: three or more times per week How often do you get together with friends or relatives?: three or more times per week How often do you attend baptist or latter day services?: decline to answer Do you belong to any clubs or organized social groups?: no Panel score (0-1 are the most socially isolated patients): 1 What type of physical activity do you participate in: walking Duration: < 15 minutes/day Frequency: 1-2 times per week Maryjo/Latter-Day: No preference Special maryjo needs: No Seatbelt use: always Helmet use: Yes Drive intox or ride w/intox reefer truck driver: No Do you feel safe at home: Yes Do you feel safe in your relationship?: Yes Female Reproductive History Menstrual Age of Menarche: 9 Duration of menses: 3-5 days control method: condoms History History 3 Para 2 Hx # Term Pregnancies 2 Multiple births 0 Hx # Pregnancies 0 Ectopic pregnancies 0 AB induced 0 Hx Number of Living Children 2 AB spontaneous 0 Past Pregnancies Del. Date GA/Weeks # Preg Succ Route Wgt Sex Labor Lgth Anesthesia Location [facility] 08/13/15 39 No vaginal 7 lb 6 oz Female 12 hrs [facility] in [place] other 12/29/18 41 No vaginal 8 lb 1 oz Male Anea Lelong Delivery Date: 08/13/15 Last Updated by: Dipika Roman IOL with misoprostol for preeclampsia, [facility]. Delivery Date: 12/29/18 Last Updated by: Briana Gibson Spont labor, nml . Edi DS: Data Vitals/I&O Vitals and I&O: Vital Signs Temperature 98.2 F 10/31/23 20:35 Temperature Source Oral 10/31/23 20:35 Pulse 98 H 10/31/23 20:35 Pulse Rhythm Regular 10/31/23 20:35 Respiratory Rate 17 10/31/23 20:35 Respiratory Depth Normal 10/31/23 20:35 Blood Pressure 115/72 10/31/23 20:35 Blood Pressure Mean 86 10/31/23 20:35 Pulse Oximetry 98 10/31/23 20:35 Oxygen Delivery Method Room Air 10/29/23 18:14 Oxygen Flow Rate 0 10/29/23 18:14 Pain Level 0 10/31/23 06:00 Intake & Output 10/31/23 10/31/23 11/01/23 11:59 23:59 11:59 Intake Total 1800 / 1800 Output Total 650 / 2150 1500 / 2150 350 / 350 Balance 1150 / -350 -1500 / -350 -350 / -350 Intake: IV 1800 / 1800 Output: Urine 650 / 2150 1500 / 2150 350 / 350 Other: Urine Color Yellow Pale Urine Appearance Clear Comment patient has marinelli catheter in, documented in the I/O section Voiding Methods Indwelling Catheter Data Completed and Pending Labs on day of discharge: Labs from last 24 hours 10/31/23 10/29/23 06:13 18:37 ABO/Rh A Negative Antibody Screen NEGATIVE Screen Negative Rhogam Unit Number [id number] Unit Expiration Date 07/08/2024 9049 Product Lot # [id number]
[2023-11-01 08:55] VITALS: BP 126/63; PULSE 107; RESP 20; TEMP 36.8; O2SAT 98
[2023-11-01 12:17] VITALS: BP 129/73; PULSE 117; RESP 20; TEMP 36.8; O2SAT 98
[2023-11-01 17:05] VITALS: BP 148/77; PULSE 118; RESP 18; TEMP 36.8; O2SAT 97
--- NOTE | 2023-11-01 23:25 | NUR.NOTE ---
Nursing Note: At 20:00 pt appears to be overwhelmed with baby being in the isolate and under the bili lights. Pt is in the chair crying, holding bp medication at this time. Checked on pt in 30min and she was soundly sleeping. Will check bp and give medication when pt wakes. Will continue to monitor.
[2023-11-01] MEDS: Labetalol 100 MG TAB PO (23:45)
[2023-11-01 23:55] VITALS: BP 147/96; PULSE 130; RESP 18; O2SAT 98
[2023-11-02 03:59] VITALS: BP 148/71; PULSE 110
[2023-11-02 08:01] VITALS: BP 122/74; PULSE 108; RESP 18; TEMP 36.6; O2SAT 97
[2023-11-02] MEDS: Labetalol 100 MG TAB PO (08:36)
[2023-11-02 12:11] VITALS: BP 121/69; PULSE 98; RESP 18; TEMP 36.6; O2SAT 97
--- NOTE | 2023-11-02 17:27 | W.PM.OBPNV1 ---
Date of service: 11/02/23 Time of Service: 14:00 Assessment and Plan Assessment and plan (1) Status post primary low transverse section: Status: Acute Assessment and plan: Pt is doing well POD# s/p PCS for labor arrest. She stayed until today primarily due to the baby needing the bili lights. We reviewed d/c and she has f/u scheduled for next week. Exam Physical Exam Vital signs: Temp Pulse Resp BP Pulse Ox 97.9 F 98 H 18 121/69 97 11/02/23 12:11 11/02/23 12:11 11/02/23 12:11 11/02/23 12:11 11/02/23 12:11 Vital Signs Reviewed: Yes Constitutional Constitutional: no acute distress and cooperative Detailed HEENT Exam Head: Present normocephalic and atraumatic Respiratory Exam Respiratory Exam: Normal Abdominal Exam Abdomen: Tender (mildly) Comments: Incision clean, dry, intact Fundal Exam Fundus: Below Umbilicus and Firm Extremities Exam Extremity Exam: Edema (trace) Detailed Neurological Exam Neurological: Present alert, oriented X3 and CN II-XII intact Results Hemoglobin/Hematocrit: Hgb 9.8 g/dL (11.2-15.7) L 10/31/23 06:13 Hct 29.3 % (36.0-46.0) L 10/31/23 06:13 Abnormal Lab Findings: Abnormal Labs 10/29/23 10/31/23 18:37 06:13 WBC 12.60 H 15.27 H RBC 3.46 L 3.18 L Hgb 10.7 L 9.8 L Hct 31.8 L 29.3 L RDW 18.6 H 18.7 H Absolute Neutrophils 11.25 H Absolute Monocytes 1.19 H
--- NOTE | 2023-11-02 17:29 | DSE_ITS ---
Date of service: 11/02/23 Time of Service: 17:29 DS: Diagnosis Discharge Diagnosis (1) Status post primary low transverse section: Status: Acute Asessment and Plan: d/c home. Instructions reviewed. Discharge Plan Disposition Patient Disposition: Home Condition: Improving Discharge Details Reason For Visit: Term Admit Date/Time: 10/29/23 18:54 Admit Provider: Kristen Padilla Attending Provider: Kristen Padilla [facility]: Patient was admitted for labor induction. She received misoprostol for cervical ripening, followed by Pitocin augmentation. She had a maximum Pitocin dose of 18, she had artificial rupture membranes for clear fluid and failed to progress beyond 2 to 3 cm. Baby did not descend low into the pelvis and in light of the fact that there was suspicion for LGA baby, and no active labor, the decision was made for her to undergo primary low-transverse section. Risk benefits and alternatives have been discussed and she underwent her section. She delivered a viable male infant with Apgars of 9 and 9. She had uncomplicated postoperative course and was discharged home postoperative day #3(due to the baby needing bili monitoring) ambulating, tolerating oral pain medication and stable vital signs. Follow-up in the office in 1, 2, and 6 weeks. All questions were answered. Home Meds and New Rx's Prescriptions: New ibuprofen 800 mg tablet 800 mg PO Q8H PRNQty: 60 1RF docusate sodium [Colace] 100 mg capsule 100 mg PO BID Qty: 30 1RF Continued Classic 28 mg iron- 800 mcg tablet 1 tab PO DAILY Qty: 90 3RF Hold Instructions: Pt Stopped/Never Started Rx Instructions: may substitute Discontinued labetalol 200 mg tablet 200 mg PO BID Qty: 60 5RF Hold Instructions: Pt Stopped/Never Started Discharge Instructions Additional Instructions: Follow-up with Dr. Padilla in 1, 2, and 6 weeks. Stand Alone Forms: BC Instructions, BC Discharge Instruc Activity:: No heavy lifting, pelvic Equipment/Supplies:: No Equipment Needed Diet:: As Tolerated Discharge Orders Discharge Orders: Discharge Order (Routine); Ordered 11/01/23 Ordered By: Kristen Padilla OB:DS Summary Contraception Discussed Contraception Discussed: Yes, [place] Gender-Baby A: Male weight: 7 lb 10.224 oz Status at Discharge Functional status at discharge: independent ambulation Overall status at discharge: patient is back to baseline Mental Status: mental status grossly normal Speech and Movement: speech and movement normal Mood: congruent mood Affect: normal affect Quality:SDOH Health Related Social Needs: No Data to Display Exam Physical Exam Vital signs: Temp Pulse Resp BP Pulse Ox 97.9 F 98 H 18 121/69 97 11/02/23 12:11 11/02/23 12:11 11/02/23 12:11 11/02/23 12:11 11/02/23 12:11 Vital Signs Reviewed: Yes PFSH All Active Problems (Updated 11/02/23 @ 17:28 by Marcia Queen MD) Status post primary low transverse section (Acute) Primary low-transverse section 10/30/2023. Failed induction. Baby boy Hematuria (Acute) Elevated glucose level (Acute) LFT elevation (Acute) Chronic hypertension affecting (Acute) Obesity, Class III, BMI 40-49.9 (morbid obesity) (Chronic) Medical History (Updated 11/02/23 @ 17:28 by Marcia Queen MD) Arrested labor Family history of thyroid disease in mother COVID-19 virus infection (~2020) Preeclampsia Family History Mother Hyperlipidemia Hypothyroidism Father No problems noted. Sister No problems noted. Brother No problems noted. Maternal Grandfather , 75 Alcohol use disorder Paternal Grandfather No problems noted. Maternal Grandmother No problems noted. Paternal Grandmother No problems noted. Son No problems noted. Daughter No problems noted. Social History Smoking/Tobacco Use Status: Never Second Hand Exposure: Yes Smoking risk assessment performed?: Yes Alcohol Intake: former Drug use: Never Substance use type: does not use Caregiver/Support person: No Household members: children Housing: house Number of Children: 1 Communication Needs: None Do you need help understanding health information?: Never current occupation: H[employer] Pets and animals: Yes Pets and animals: cat(s) and dog(s) Sexually active: Yes Do you think of yourself as: straight/heterosexual Current gender identity: female What is your relationship status?: never How often do you talk on the phone with friends or family?: three or more times per week How often do you get together with friends or relatives?: three or more times per week How often do you attend jehovah's witness or roman catholic services?: decline to answer Do you belong to any clubs or organized social groups?: no Panel score (0-1 are the most socially isolated patients): 1 What type of physical activity do you participate in: walking Duration: < 15 minutes/day Frequency: 1-2 times per week Maryjo/Gnosticist: No preference Special maryjo needs: No Seatbelt use: always Helmet use: Yes Drive intox or ride w/intox tow motor driver: No Do you feel safe at home: Yes Do you feel safe in your relationship?: Yes Female Reproductive History Menstrual Age of Menarche: 9 Duration of menses: 3-5 days control method: condoms History History 3 Para 2 Hx # Term Pregnancies 2 Multiple births 0 Hx # Pregnancies 0 Ectopic pregnancies 0 AB induced 0 Hx Number of Living Children 2 AB spontaneous 0 Past Pregnancies Del. Date GA/Weeks # Preg Succ Route Wgt Sex Labor Lgth Anesth esia Location [facility] 08/13/15 39 No vaginal 7 lb 6 oz Female 12 hrs [facility] in [place] other 12/29/18 41 No vaginal 8 lb 1 oz Male [facility] [place] 10/30/23 38 No Yes 7 lb [address] Hank Padilla Delivery Date: 08/13/15 Last Updated by: Dipika Roman IOL with misoprostol for preeclampsia, [facility]. Delivery Date: 12/29/18 Last Updated by: Briana Gibson Spont labor, nml . Edi Delivery Date: 10/30/23 Last Updated by: Marcia Queen MD PCS for arrest and suspected LGA baby DS: Data Vitals/I&O Vitals and I&O: Vital Signs Temperature 97.9 F 11/02/23 12:11 Temperature Source Oral 11/02/23 12:11 Pulse 98 H 11/02/23 12:11 Pulse Rhythm Regular 11/02/23 08:01 Respiratory Rate 18 11/02/23 12:11 Respiratory Depth Normal 11/01/23 23:45 Blood Pressure 121/69 11/02/23 12:11 Blood Pressure Mean 86 11/02/23 12:11 Pulse Oximetry 97 11/02/23 12:11 Oxygen Delivery Method Room Air 10/29/23 18:14 Oxygen Flow Rate 0 10/29/23 18:14 Pain Level 0 11/02/23 12:11 Comment Rn notified MD of elevated BP 11/01/23 17:05 Intake & Output 11/01/23 11/02/23 11/02/23 23:59 11:59 23:59 Other: Urine Color Yellow
== END 2023-11-02 17:39 | disposition home or self-care (01) | DRG 787 ==
PROVIDERS: Admitting Provider Obstetrics & Gynecology; PCP Nurse Practitioner Family; Visit Provider Obstetrics & Gynecology
PROC: 10D00Z1 Extraction of Products of Conception, Low, Open Approach (ICD-10-PCS; CPT 59514; principal; 2023-10-30 21:35)
DX: O36.63X0 Maternal care for excessive fetal growth, third trimester, not applicable or unspecified (principal); O10.02 Pre-existing essential hypertension complicating childbirth; Z37.0 Single live birth; Z3A.38 38 weeks gestation of pregnancy; Z67.11 Type A blood, Rh negative; O99.214 Obesity complicating childbirth; E66.8 Other obesity; O62.1 Secondary uterine inertia
CPT/HCPCS: 59514; 36415; 85027; 85461; 86850; 86900; 86901; 90384; 59200; 85025; J0456; J0665; J0690; J1885; J2274; J2371; J2405; J2540; J2790; J3010; J3490

== ENCOUNTER 2023-12-31 10:35 | Outpatient (REF) | payer OTHER, MEDICAID, SELFPAY ==
[2024-01-01 12:14] LABS: Chlamydia Result Negative (Negative); GC Result Negative (Negative)
== END 2023-12-31 10:36 | disposition home or self-care (01) ==
LOC: LBN 10:35
PROVIDERS: PCP Nurse Practitioner Family; Visit Provider Obstetrics & Gynecology
DX: Z11.3 Encounter for screening for infections with a predominantly sexual mode of transmission (principal)
CPT/HCPCS: 87491; 87591

== ENCOUNTER 2024-08-13 13:23 | Outpatient (REF) | payer OTHER, MEDICAID, SELFPAY ==
--- NOTE | 2024-08-13 13:00 | PAPFT_PTH ---
PATIENT: Tasha White LOC: [facility]#:[id number] AGE/SX: 29/F ROOM: RE08/13/[address]: Kristen Padilla DO : 1995 BED: DIS: 08/13/2024 SPEC #: [id number] RECD: 08/13/24 17:42 STATUS: DIANA REQ #: [id number] LUISA: 08/13/24 13:[address]: Kristen Padilla DEPT: [facility] Cytology RECD BY: Naz Casey ENTERED: 08/13/24 17:43 SP TYPE: PAPFT OTHR DR: SARY JohnsonP Tissues: 1 - CX/ENDOCX FOR PAP SMEARS Procedures: PAP THIN PREP/[facility] Screening HPV DNA PROBE Comments: [id number] (HPV 16 & 18/45)
== END 2024-08-13 13:24 | disposition home or self-care (01) ==
LOC: LBN 13:23
PROVIDERS: PCP Nurse Practitioner Family; Visit Provider Obstetrics & Gynecology
DX: Z01.419 Encounter for gynecological examination (general) (routine) without abnormal findings (principal)
CPT/HCPCS: 88142; 87624

== ENCOUNTER 2025-05-18 00:42 | Outpatient (CLI) | payer OTHER, MEDICAID, SELFPAY ==
[2025-05-18 15:24] LABS: Abs Immature Grans 0.01 10^3/uL (0.0-0.06); HCT 36.6 % (36.0-46.0); HGB 12.2 g/dL (11.2-15.7); Immature Grans % 0.2 %; MCH 30.8 pg (27.0-33.0); MCHC 33.3 % (32.0-36.0); MCV 92 fL (80-95); MPV 10.4 fL (8.0-11.0); Platelet Count 228 10^3/uL (130-400); RBC 3.96 10^6/uL (3.93-5.22); RDW 15.6 % (11.7-14.6); RDW-SD 53.2 fL; WBC 6.08 10^3/uL (4.4-10.8)
[2025-05-18 15:43] LABS: TSH (W/Ref FT4) 1.82 uIU/mL (0.55-4.78)
[2025-05-18 15:47] LABS: Hemoglobin A1C 4.0 % (<5.7)
[2025-05-18 16:42] LABS: ALT 17 U/L (10-49); AST 22 U/L (<34); Albumin 4.5 g/dL (3.2-5.0); Alkaline Phosphatase 67 U/L (46-116); Anion Gap 9.3 mmol/L (3-11); BUN 12 mg/dL (9-23); Bilirubin, Total 0.6 mg/dL (0.2-1.2); CO2 26.7 mmol/L (20.0-31.0); Calcium 8.8 mg/dL (8.3-10.6); Chloride 109 mmol/L (98-107); Cholesterol 137 mg/dL (<200); Glucose 76 mg/dL (74-106); HDL Cholesterol 49 mg/dL (>40); Potassium 3.7 mmol/L (3.5-5.1); Sodium 145 mmol/L (136-145); Total Protein 6.9 g/dL (5.7-8.2)
== END 2025-05-18 00:43 | disposition home or self-care (01) ==
LOC: LOS 00:42
PROVIDERS: PCP Nurse Practitioner Family; Visit Provider Nurse Practitioner Family
DX: E66.01 Morbid (severe) obesity due to excess calories (principal)
CPT/HCPCS: 36415; 80053; 80061; 83036; 84443; 85025